=== PATIENT | male | born 1945 | race Caucasian/White ===

== ENCOUNTER → 2018-08-31 | Outpatient (REF) | payer MEDICARE ==
[2018-08-31 12:23] LABS: ALBUMIN 3.7 GM/DL (3.2-5.2); ALBUMIN/GLOBULIN RATIO 1.09 (1.00-1.93); ALKALINE PHOSPHATASE 160 U/L (45-117); ALT/SGPT 29 U/L (12-78); ANION GAP 11 MEQ/L (8-16); AST/SGOT 12 U/L (7-37); BILIRUBIN,TOTAL 0.5 MG/DL (0.2-1.0); BLOOD UREA NITROGEN 17 MG/DL (7-18); CALCIUM LEVEL 8.8 MG/DL (8.8-10.2); CARBON DIOXIDE LEVEL 27 MEQ/L (21-32); CHLORIDE LEVEL 105 MEQ/L (98-107); CHOLESTEROL LEVEL 107 MG/DL (<200); CHOLESTEROL RISK RATIO 2.547 (<5); CPK CREATINE PHOSPHOKINASE 45 U/L (39-308); CREATININE FOR GFR 1.16 MG/DL (0.70-1.30); GLOMERULAR FILTRATION RATE > 60.0 (>42); GLUCOSE, FASTING 131 MG/DL (70-100); HDL CHOLESTEROL 42 MG/DL (>40); LDL CHOLESTEROL 41 MG/DL (<100); NON-HDL-C 65 MG/DL; POTASSIUM SERUM 4.1 MEQ/L (3.5-5.1); SODIUM LEVEL 143 MEQ/L (136-145); TOTAL PROTEIN 7.1 GM/DL (6.4-8.2); TRIGLYCERIDES LEVEL 121 MG/DL (<150)
[2018-08-31 12:28] LABS: BASO % 0.5 % (0.0-1.0); EOS # 0.2 10^3/uL (0.0-0.50); EOS % 2.5 % (0.0-3.0); HEMATOCRIT 49.1 % (42.0-52.0); HEMOGLOBIN 16.4 g/dl (13.5-17.5); IMMATURE GRANULOCYTE % 0.2 % (0-3.0); LYMPH # 1.5 10^3/uL (1.5-4.5); LYMPH % 18.9 % (24.0-44.0); MEAN CORPUSCULAR HEMOGLOBIN 29.4 pg (27.0-33.0); MEAN CORPUSCULAR HGB CONC 33.4 g/dl (32.0-36.5); MEAN CORPUSCULAR VOLUME 88.2 fl (80.0-96.0); MONO # 0.5 10^3/uL (0.0-0.8); MONO % 6.4 % (0.0-5.0); NEUTROPHILS # 5.8 10^3/uL (1.8-7.7); NEUTROPHILS % 71.5 % (36.0-66.0); PLATELET COUNT, AUTOMATED 203 10^3/uL (150-450); RED BLOOD COUNT 5.57 10^6/uL (4.30-6.10); RED CELL DISTRIBUTION WIDTH 13.9 % (11.5-14.5); WHITE BLOOD COUNT 8.1 10^3/uL (4.0-10.0)
[2018-08-31 12:42] LABS: ESTIMATED AVERAGE GLUCOSE 237 MG/DL (60-110); HEMOGLOBIN A1c 9.9 %
== END ==
LOC: M SFHCPLAZ 09:27
DX: E78.2 Mixed hyperlipidemia (principal); I10 Essential (primary) hypertension; E11.22 Type 2 diabetes mellitus with diabetic chronic kidney disease
CPT/HCPCS: 82550

== ENCOUNTER → 2018-10-26 | Outpatient (REF) | payer MEDICARE ==
[2018-10-26 12:54] LABS: HEMOGLOBIN A1c 8.8 %
[2018-10-26 13:07] LABS: MALB URINE SIEMENS 70.4 MG/L; MAU/CREAT RATIO 58.6 MCG/MG (0.0-30.0)
== END ==
LOC: M SFHCPLAZ 09:06
PROVIDERS: ATTEND Physician Assistant Medical
DX: E11.22 Type 2 diabetes mellitus with diabetic chronic kidney disease (principal)

== ENCOUNTER 2018-10-28 12:07 | Emergency (ER) | payer MEDICARE ==
[~2018-10-28] VITALS: Ht 172.7 cm; Wt 111.4 kg
[2018-10-28] MEDS ORDERED: METO50TA7 PO (12:52)
[2018-10-28] MEDS ORDERED: ASPI325T25 PO (12:52)
[2018-10-28] MEDS ORDERED: ATOR40TA75 PO (12:52)
[2018-10-28] MEDS ORDERED: HYDR10TAB PO (12:52)
[2018-10-28] MEDS ORDERED: AMLO10TA5 PO (12:52)
--- NOTE | 2018-10-28 14:55 | REP ---
Left hip: Two views. History: Left hip pain. Question injury. Findings: AP and frog-leg views of the left hip show greater trochanteric spurring and mild hip joint osteoarthritic spurring. Vascular calcifications noted. No fractures seen Impression: Mild osteoarthritis and greater trochanteric spurring. No fracture seen. Vascular calcification. Electronically Signed by Mauro Coffey MD 10/28/2018 02:46 P
[2018-10-28] MEDS ORDERED: CYCL10TA PO (15:05)
[2018-10-28 15:12] VITALS: BP 138/70
== END 2018-10-28 15:14 | disposition home or self-care (01) ==
LOC: M ED 12:07
DX: M16.12 Unilateral primary osteoarthritis, left hip (principal); M62.830 Muscle spasm of back; M54.9 Dorsalgia, unspecified; G89.29 Other chronic pain; I10 Essential (primary) hypertension; Z87.442 Personal history of urinary calculi; Z95.5 Presence of coronary angioplasty implant and graft; Z79.899 Other long term (current) drug therapy; Z79.82 Long term (current) use of aspirin

== ENCOUNTER → 2019-01-24 | Outpatient (REF) | payer MEDICARE ==
[~2019-01-24] MED LIST: AMLO10TA5 PO; ASPI-255 PO; ATOR40TA75 PO; CYCL10TA PO; HYDR10TAB PO; METO50TA7 PO
[2019-01-24 14:03] LABS: BASO # 0.1 10^3/uL (0.0-0.2); BASO % 0.5 % (0.0-1.0); EOS # 0.2 10^3/uL (0.0-0.50); EOS % 1.5 % (0.0-3.0); HEMATOCRIT 48.7 % (42.0-52.0); HEMOGLOBIN 15.8 g/dl (13.5-17.5); LYMPH # 1.5 10^3/uL (1.5-4.5); LYMPH % 14.9 % (24.0-44.0); MEAN CORPUSCULAR HGB CONC 32.4 g/dl (32.0-36.5); MEAN CORPUSCULAR VOLUME 86.2 fl (80.0-96.0); MONO # 0.5 10^3/uL (0.0-0.8); MONO % 5.4 % (0.0-5.0); NEUTROPHILS # 7.7 10^3/uL (1.8-7.7); NEUTROPHILS % 77.2 % (36.0-66.0); PLATELET COUNT, AUTOMATED 237 10^3/uL (150-450); RED BLOOD COUNT 5.65 10^6/uL (4.30-6.10); WHITE BLOOD COUNT 9.9 10^3/uL (4.0-10.0)
[2019-01-24 14:19] LABS: ALBUMIN 4.1 GM/DL (3.2-5.2); ALT/SGPT 23 U/L (12-78); BILIRUBIN,TOTAL 0.5 MG/DL (0.2-1.0); BLOOD UREA NITROGEN 25 MG/DL (7-18); CALCIUM LEVEL 9.1 MG/DL (8.8-10.2); CARBON DIOXIDE LEVEL 29 MEQ/L (21-32); CHLORIDE LEVEL 103 MEQ/L (98-107); CREATININE FOR GFR 1.26 MG/DL (0.70-1.30); GLOMERULAR FILTRATION RATE > 60.0 (>42); GLUCOSE, FASTING 236 MG/DL (70-100); POTASSIUM SERUM 4.4 MEQ/L (3.5-5.1); SODIUM LEVEL 136 MEQ/L (136-145); TOTAL PROTEIN 7.6 GM/DL (6.4-8.2)
[2019-01-24 14:37] LABS: HEMOGLOBIN A1c 8.7 %
== END ==
LOC: M SFHCPLAZ 11:54
PROVIDERS: ATTEND Physician Assistant Medical
DX: E11.22 Type 2 diabetes mellitus with diabetic chronic kidney disease (principal); I10 Essential (primary) hypertension
CPT/HCPCS: 36415; 80053; 83036; 85025; G0463

== ENCOUNTER → 2019-03-08 | Outpatient (CLI) | payer MEDICARE ==
--- NOTE | 2019-03-08 10:17 | REP ---
Chest two views HISTORY: Shortness of breath Comparison: None A 2.4 cm parenchymal density is present in the right lower lobe. This is suspicious for a neoplasm. Patchy density is present in the right mid and lower lobe consistent with atelectasis or infiltrate. Linear densities are present in the left lower lobe consistent with atelectasis or scar. The cardiac silhouette is enlarged. The pulmonary vasculature is normal in appearance. The bony structure is intact. IMPRESSION: 1. There is 8-0.4 cm parenchymal density in the right lower lobe suspicious for a neoplasm. CT of the chest is recommended for further evaluation. 2. Right mid and lower lobe atelectasis or infiltrate. 3. Left lower lobe atelectasis or scar. Electronically Signed by Wesley Ponce MD 03/08/2019 10:08 A
== END ==
LOC: M SMT 09:40
PROVIDERS: ATTEND Physician Assistant Medical
DX: R91.8 Other nonspecific abnormal finding of lung field (principal); R06.02 Shortness of breath
CPT/HCPCS: 71046; G0463

== ENCOUNTER → 2019-03-15 | Outpatient (CLI) | payer MEDICARE ==
[~2019-03-15] MED LIST changes: +ISOVUE-370 76% 100ML VIAL (Q9967) As Ordered ONE
--- NOTE | 2019-03-15 19:36 | REP ---
CT CHEST WITHOUT IV CONTRAST: TECHNIQUE: Axial contrast enhanced images from the thoracic inlet to the upper abdomen using 100 mL Isovue 370 intravenous contrast material with multiplanar reformations. Comparison made with prior chest radiographs 03/08/2019. In the right upper lobe posterior and inferiorly there is a cluster of large nodules. The largest is pleural based and measures approximately 4.7 x 3.1 cm. Two adjacent nodules measures 1.7 and 1.0 cm in diameter. Just above that there is a subcentimeter nodule, a 2.2 cm nodule a 1.1 cm nodule. Otherwise there are a few scattered tiny calcified granulomas bilaterally as well as mild scattered interstitial fibrotic changes mainly in the lung bases. Heart is mildly enlarged. No mediastinal, hilar, or chest wall lymphadenopathy is seen. There are scattered small mediastinal and hilar calcified lymph nodes. There is no pleural or pericardial effusion. There is atherosclerotic calcification of the thoracic aorta without aneurysm. There appears to be a small cyst in the right and in the left lobes of the liver. There are degenerative changes of the spine. The study is somewhat limited due to breathing motion. IMPRESSION: There are multiple nodules clustered together in the posterior right upper lobe inferior aspect. Differential diagnosis would include neoplastic and infectious etiologies. Close followup is recommended. CT guided biopsy could be performed if desired. There is no evidence of significant adenopathy. There is evidence of prior granulomatous disease. Electronically Signed by Adrian Eng MD 03/16/2019 09:02 A
== END ==
LOC: M RAD 14:47
PROVIDERS: ATTEND Physician Assistant Medical
DX: R91.8 Other nonspecific abnormal finding of lung field (principal)
CPT/HCPCS: 71260; Q9967

== ENCOUNTER → 2019-03-23 | Outpatient (REF) | payer MEDICARE ==
[~2019-03-23] MED LIST changes: -ISOVUE-370 76% 100ML VIAL (Q9967) As Ordered ONE
[2019-03-23 17:36] LABS: ALBUMIN 3.9 GM/DL (3.2-5.2); BILIRUBIN,TOTAL 0.4 MG/DL (0.2-1.0); CALCIUM LEVEL 8.6 MG/DL (8.8-10.2); CREATININE FOR GFR 1.3 MG/DL (0.70-1.30); GLOMERULAR FILTRATION RATE 57.9 (>42); POTASSIUM SERUM 4.2 MEQ/L (3.5-5.1); TOTAL PROTEIN 7.5 GM/DL (6.4-8.2)
== END ==
LOC: M SFHCPLAZ 15:16
PROVIDERS: ATTEND Physician Assistant Medical
DX: J18.1 Lobar pneumonia, unspecified organism (principal); E11.22 Type 2 diabetes mellitus with diabetic chronic kidney disease
CPT/HCPCS: 36415; 80053; 86480; G0463

== ENCOUNTER → 2019-03-29 | Outpatient (REF) | payer MEDICARE | LOC: M SFHCPLAZ 15:16 | PROVIDERS: ATTEND Physician Assistant Medical | DX: J18.1 Lobar pneumonia, unspecified organism (principal) ==

== ENCOUNTER → 2019-04-17 | Outpatient (CLI) | payer MEDICARE ==
[~2019-04-17] MED LIST changes: +ISOVUE-370 76% 100ML VIAL (Q9967) As Ordered ONE
--- NOTE | 2019-04-17 15:13 | REP ---
CT of the chest with IV contrast: Comparison is 03/15/2019. There is a large mass in the right upper lobe versus right upper lobe collapse versus combination. The previous right upper lobe nodular densities are no longer identified on the current study and may be incorporated into the large right upper lobe mass like density present today. There is no right pleural effusion. The right middle lobe and right lower lobe are unremarkable. The left lung is unremarkable except for mild atelectasis. There is no mediastinal lymph node enlargement. There is no axillary lymph node enlargement. There is no hilar lymph node enlargement. Thoracic aorta is unremarkable. Cardiac size is enlarged. This is unchanged. There is no pericardial effusion. Upper abdomen: The adrenals are imaged incompletely. No adrenal masses are identified in the visualized portions of the adrenals. The visualized upper abdominal contents are otherwise unremarkable. Impression: Large right upper lobe mass versus right upper lobe collapse versus combination as a change from the prior study. The previous right upper lobe nodules are not identified and may be incorporated into the mass like density identified today. Cardiomegaly, unchanged. No adenopathy or pleural effusion. Electronically Signed by Adrian May MD 04/17/2019 03:05 P
== END ==
LOC: M RAD 13:32
PROVIDERS: ATTEND Physician Assistant Medical
DX: R91.8 Other nonspecific abnormal finding of lung field (principal); I51.7 Cardiomegaly
CPT/HCPCS: 71260; Q9967

== ENCOUNTER → 2019-05-03 | Outpatient (CLI) | payer MEDICARE ==
[~2019-05-03] MED LIST changes: -ISOVUE-370 76% 100ML VIAL (Q9967) As Ordered ONE
--- NOTE | 2019-05-03 17:28 | REP ---
Bilateral lower extremity Duplex Doppler venous ultrasound: Real time compression and duplex Doppler interrogation of the bilateral lower extremity deep venous system is performed. Bilaterally, the common femoral, superficial femoral and popliteal veins are fully compressible with transducer pressure and demonstrate normal spontaneous and phasic flow, without evidence of deep venous thrombosis. Impression: No evidence of deep venous thrombosis of the bilateral lower extremity femoral popliteal venous system. Electronically Signed by Adrian Eng MD 05/03/2019 05:21 P
== END ==
LOC: M RAD 15:36
PROVIDERS: ATTEND Internal Medicine Pulmonary Disease
DX: R60.0 Localized edema (principal)

== ENCOUNTER → 2019-05-05 | Outpatient (REF) | payer MEDICARE ==
[2019-05-05 17:48] LABS: BASO # 0.1 10^3/uL (0.0-0.2); BASO % 0.5 % (0.0-1.0); EOS # 0.1 10^3/uL (0.0-0.50); EOS % 0.9 % (0.0-3.0); HEMATOCRIT 49.3 % (42.0-52.0); HEMOGLOBIN 16.2 g/dl (13.5-17.5); LYMPH # 1.5 10^3/uL (1.5-4.5); LYMPH % 15.3 % (24.0-44.0); MEAN CORPUSCULAR HEMOGLOBIN 28.4 pg (27.0-33.0); MEAN CORPUSCULAR HGB CONC 32.9 g/dl (32.0-36.5); MEAN CORPUSCULAR VOLUME 86.3 fl (80.0-96.0); MONO # 0.5 10^3/uL (0.0-0.8); MONO % 5.7 % (0.0-5.0); NEUTROPHILS # 7.4 10^3/uL (1.8-7.7); NEUTROPHILS % 77.1 % (36.0-66.0); PLATELET COUNT, AUTOMATED 228 10^3/uL (150-450); RED BLOOD COUNT 5.71 10^6/uL (4.30-6.10); WHITE BLOOD COUNT 9.5 10^3/uL (4.0-10.0)
[2019-05-05 17:57] LABS: INR 1.05; PROTHROMBIN TIME 13.4 SECONDS (11.8-14.0)
[2019-05-05 17:58] LABS: PARTIAL THROMBOPLASTIN TIME 35.2 SECONDS (25.0-38.4)
[2019-05-05 18:09] LABS: ALBUMIN 3.7 GM/DL (3.2-5.2); ALT/SGPT 26 U/L (12-78); BILIRUBIN,TOTAL 0.4 MG/DL (0.2-1.0); BLOOD UREA NITROGEN 13 MG/DL (7-18); CALCIUM LEVEL 9.1 MG/DL (8.8-10.2); CARBON DIOXIDE LEVEL 29 MEQ/L (21-32); CHLORIDE LEVEL 103 MEQ/L (98-107); CREATININE FOR GFR 1.19 MG/DL (0.70-1.30); GLOMERULAR FILTRATION RATE > 60.0 (>42); GLUCOSE, FASTING 178 MG/DL (70-100); POTASSIUM SERUM 4.1 MEQ/L (3.5-5.1); SODIUM LEVEL 139 MEQ/L (136-145); TOTAL PROTEIN 7.2 GM/DL (6.4-8.2)
== END ==
LOC: M SFHCPLAZ 15:32
PROVIDERS: ATTEND Physician Assistant Medical
DX: Z01.818 Encounter for other preprocedural examination (principal); J44.9 Chronic obstructive pulmonary disease, unspecified
CPT/HCPCS: 36415; 80053; 85025; 85610; 85730; G0463

== ENCOUNTER 2019-06-03 10:07 | Emergency (ER) | payer MEDICARE ==
[~2019-06-03] VITALS: Ht 172.7 cm; Wt 110.6 kg
[2019-06-03] MEDS ORDERED: FLUT44IN (10:15)
[2019-06-03] MEDS ORDERED: INCR1INH (10:15)
[2019-06-03] MEDS ORDERED: TRES1INJ (10:15)
[2019-06-03 11:03] LABS: BASO # 0.1 10^3/uL (0.0-0.2); BASO % 0.6 % (0.0-1.0); EOS # 0.2 10^3/uL (0.0-0.5); EOS % 2.4 % (0.0-3.0); HEMATOCRIT 49.3 % (42.0-52.0); HEMOGLOBIN 16.1 g/dl (13.5-17.5); LYMPH # 1.3 10^3/uL (1.5-5.0); LYMPH % 16.9 % (24.0-44.0); MEAN CORPUSCULAR HGB CONC 32.7 g/dl (32.0-36.5); MEAN CORPUSCULAR VOLUME 85.6 fl (80.0-96.0); MONO # 0.5 10^3/uL (0.0-0.8); NEUTROPHILS # 5.7 10^3/uL (1.5-8.5); NEUTROPHILS % 73.8 % (36.0-66.0); PLATELET COUNT, AUTOMATED 215 10^3/uL (150-450); RED BLOOD COUNT 5.76 10^6/uL (4.30-6.10); WHITE BLOOD COUNT 7.8 10^3/uL (4.0-10.0)
[2019-06-03 11:23] LABS: INR 1.05; PROTHROMBIN TIME 13.4 SECONDS (11.8-14.0)
[2019-06-03 11:24] LABS: PARTIAL THROMBOPLASTIN TIME 31.7 SECONDS (25.0-38.4)
[2019-06-03] MEDS ORDERED: ISOVUE-370 76% 100ML VIAL (Q9967) As Ordered ONE (11:35)
[2019-06-03 11:43] LABS: ALBUMIN 3.6 GM/DL (3.2-5.2); ALT/SGPT 24 U/L (12-78); BILIRUBIN,TOTAL 0.4 MG/DL (0.2-1.0); BLOOD UREA NITROGEN 16 MG/DL (7-18); CALCIUM LEVEL 9.5 MG/DL (8.8-10.2); CARBON DIOXIDE LEVEL 25 MEQ/L (21-32); CHLORIDE LEVEL 103 MEQ/L (98-107); CREATININE FOR GFR 1.17 MG/DL (0.70-1.30); GLOMERULAR FILTRATION RATE > 60.0 (>42); GLUCOSE, FASTING 256 MG/DL (70-100); POTASSIUM SERUM 4.5 MEQ/L (3.5-5.1); SODIUM LEVEL 137 MEQ/L (136-145); TOTAL PROTEIN 7.3 GM/DL (6.4-8.2)
--- NOTE | 2019-06-03 11:54 | REP ---
Clinical: Neck pain and decreased range of motion. Technique: AP, lateral, open mouth views of the cervical spine. Findings: Alignment and lordosis maintained. No acute fracture / compression injury or subluxation. Early advanced multilevel degenerative changes with endplate sclerosis, osteophytosis and disc space narrowing noted at C5-6 through C7-T1. Impression: Moderate/advanced multilevel degenerative spondylosis. Electronically Signed by Scott Montanez MD 06/03/2019 11:45 A
[2019-06-03] MEDS ORDERED: ACETAMINOPHEN 325 MG TAB PO ONE (12:00)
--- NOTE | 2019-06-03 12:11 | REP ---
Clinical: Right upper chest pain. Technique: Axial contrast enhanced images from the thoracic inlet to the upper abdomen with coronal and sagittal re-formations using 100 ml Isovue 370 intravenous contrast material. Findings: Examination is severely limited due to considerable respiratory motion artifact. Appears to be stable suspected collapse of the to the right upper lobe and underlying mass lesion or further pathology cannot definitively be excluded. Small subpleural nodular densities along the right mid lung zone (images 26, 32) measure approximately 16 mm and appears to be slightly increased when compared to prior examination. Minimal bibasilar atelectasis. No obvious effusion. Adenopathy cannot be excluded. Atherosclerotic changes to the thoracic aorta and coronary arteries noted without aortic aneurysm or dissection. No cardiomegaly or pericardial effusion. Osseous structures are grossly intact. Very limited evaluation of the visualized upper abdomen demonstrates hepatic hypodensities which are nonspecific as well as an ill-defined complex low density area within the visualized right kidney and possible enhancing mass posterior to the left kidney. Impression: 1. Significantly limited examination due to motion artifact. 2. Right upper lobe collapse and/or underlying mass lesion is essentially unchanged. However, to subpleural right-sided nodules measuring up to approximately 16 mm are increased from prior examination. Findings cannot exclude metastatic disease. 3. Incomplete evaluation of the upper abdomen concerning for possible right renal mass and posterior left upper abdominal mass. Electronically Signed by Scott Montanez MD 06/03/2019 12:02 P
[2019-06-03 12:50] VITALS: BP 142/67
[2019-06-03] MEDS ORDERED: KETOROLAC 30 MG/ML VIAL (J1885) IV ONE (13:00)
--- NOTE | 2019-06-04 12:49 | ED PDOC ---
Post-Departure Follow-Up neal monzon faxed formal report of ct chest for fu rodolfog Rajni Fagan MD Jun 04, 2019 12:49
[2019-08-04] MEDS ORDERED: TRAZ-252 PO (13:01)
[2019-08-04] MEDS ORDERED: CYCL10TA PO (13:01)
[2019-08-07] MEDS ORDERED: AFIN10TA PO (10:36)
[2019-09-06] MEDS ORDERED: SUMA6KIT SC (12:08)
[2019-09-08] MEDS ORDERED: IBUP-1022 PO (10:51)
[2019-09-08] MEDS ORDERED: HYDR-3713 PO (10:51)
[2019-09-08] MEDS ORDERED: AMOX500C PO (10:51)
[2019-09-08] MEDS ORDERED: HUMA100I5 SQ (11:46)
== END 2019-06-03 13:17 | disposition home or self-care (01) ==
LOC: M ED 10:07
DX: S46.811A Strain of other muscles, fascia and tendons at shoulder and upper arm level, right arm, initial encounter (principal); X50.0XXA Overexertion from strenuous movement or load, initial encounter; Y92.009 Unspecified place in unspecified non-institutional (private) residence as the place of occurrence of the external cause; Y93.F9 Activity, other caregiving; Y99.8 Other external cause status; M47.812 Spondylosis without myelopathy or radiculopathy, cervical region; R91.8 Other nonspecific abnormal finding of lung field; E11.9 Type 2 diabetes mellitus without complications; I10 Essential (primary) hypertension; E78.5 Hyperlipidemia, unspecified; Z86.79 Personal history of other diseases of the circulatory system; Z87.442 Personal history of urinary calculi; Z95.5 Presence of coronary angioplasty implant and graft; Z79.82 Long term (current) use of aspirin; Z79.899 Other long term (current) drug therapy
CPT/HCPCS: 36415; 71260; 72040; 80047; 80053; 85025; 85610; 85730; 96374; 99284; J1885; Q9967

== ENCOUNTER → 2019-06-07 | Outpatient (REF) | payer MEDICARE ==
[~2019-06-07] MED LIST changes: +FLUT44IN; +INCR1INH; +TRES1INJ
[2019-06-07 10:59] LABS: BASO % 0.4 % (0.0-1.0); EOS # 0.2 10^3/uL (0.0-0.5); EOS % 2.7 % (0.0-3.0); HEMATOCRIT 49.3 % (42.0-52.0); HEMOGLOBIN 16.2 g/dl (13.5-17.5); LYMPH # 1.2 10^3/uL (1.5-5.0); LYMPH % 17.6 % (24.0-44.0); MEAN CORPUSCULAR HEMOGLOBIN 28.3 pg (27.0-33.0); MEAN CORPUSCULAR HGB CONC 32.9 g/dl (32.0-36.5); MONO # 0.4 10^3/uL (0.0-0.8); MONO % 5.7 % (0.0-5.0); NEUTROPHILS # 5.2 10^3/uL (1.5-8.5); NEUTROPHILS % 73.3 % (36.0-66.0); PLATELET COUNT, AUTOMATED 235 10^3/uL (150-450); RED BLOOD COUNT 5.73 10^6/uL (4.30-6.10); WHITE BLOOD COUNT 7.1 10^3/uL (4.0-10.0)
[2019-06-07 11:13] LABS: INR 1.1; PROTHROMBIN TIME 13.9 SECONDS (11.8-14.0)
[2019-06-07 11:14] LABS: ALBUMIN 3.7 GM/DL (3.2-5.2); ALT/SGPT 28 U/L (12-78); BILIRUBIN,TOTAL 0.4 MG/DL (0.2-1.0); BLOOD UREA NITROGEN 15 MG/DL (7-18); CALCIUM LEVEL 9.7 MG/DL (8.8-10.2); CARBON DIOXIDE LEVEL 29 MEQ/L (21-32); CHLORIDE LEVEL 102 MEQ/L (98-107); CREATININE FOR GFR 1.16 MG/DL (0.70-1.30); GLOMERULAR FILTRATION RATE > 60.0 (>42); GLUCOSE, FASTING 133 MG/DL (70-100); PARTIAL THROMBOPLASTIN TIME 33.6 SECONDS (25.0-38.4); POTASSIUM SERUM 4.4 MEQ/L (3.5-5.1); SODIUM LEVEL 140 MEQ/L (136-145); TOTAL PROTEIN 7.1 GM/DL (6.4-8.2)
== END ==
LOC: M SFHCPLAZ 09:34
PROVIDERS: ATTEND Physician Assistant Medical
DX: Z01.818 Encounter for other preprocedural examination (principal); Z79.01 Long term (current) use of anticoagulants

== ENCOUNTER → 2019-06-12 | Outpatient (CLI) | payer MEDICARE ==
[2019-06-17 00:06] LABS: ANCA-ATYPICAL <1:20 titer (Neg:<1:20); ASPERGILLUS FLAVUS ABY Negative (Neg:<1:1); ASPERGILLUS FUMIGATUS ABY Negative (Neg:<1:1); ASPERGILLUS NIGER ABY Negative (Neg:<1:1); BLASTOMYCES ANTIBODY LEVEL Negative (Neg:<1:1); CRYPTOCOCCUS ANTIGEN SER Negative (Negative); CYTOPLASMIC NEUTROP AB ANCA-C <1:20 titer (Neg:<1:20); HISTOPLASMOSIS ANTIBODY Negative (Neg:<1:1); PERINUCLEAR AB ANCA-P <1:20 titer (Neg:<1:20); PSA TOTAL 1.6 ng/mL (0.0-4.0)
== END ==
LOC: M LAB 14:54
PROVIDERS: ATTEND Internal Medicine Pulmonary Disease
DX: J44.9 Chronic obstructive pulmonary disease, unspecified (principal); R91.8 Other nonspecific abnormal finding of lung field

== ENCOUNTER → 2019-06-27 | Outpatient (CLI) | payer MEDICARE ==
[~2019-06-27] MED LIST changes: +ISOVUE-370 76% 100ML VIAL (Q9967) As Ordered ONE
--- NOTE | 2019-06-27 15:22 | REP ---
CT of the abdomen pelvis without and with IV contrast, without bowel contrast for evaluation of possible right renal mass and possible left upper abdominal mass identified on recent chest CT dated 06/03/2019. After IV contrast multiphasic imaging is performed initially during the arterial phase flow by scanning during the portal venous phase by scanning during the delayed phase of contrast enhancement. Within the visualized lung saenz. There are pleural-based lung nodules on the right, similar to the comparison chest CT. The hepatic parenchyma is homogeneous. The gallbladder, pancreas and spleen are unremarkable. There is a right renal mid pole mass measuring 6.2 cm AP by 5.8 cm transversely by 6.4 cm craniocaudad. The mass demonstrates mottled enhancement. No filling defect in the right renal vein is identified by CT. There is a 13 ml right renal cortical cyst in the anterior cortex at the inferior margin of the renal mass. The left kidney is unremarkable. There is a retroperitoneal mass on the right measuring 3.0 cm posteriorly in the right pararenal fat on image 44. There is a retroperitoneal mass on the left posteriorly in the left pararenal fat measuring 3.2 cm on image 25. There is a second retroperitoneal mass on the left posteriorly in the left pararenal fat measuring 2.2 cm on image 52. The bowel is unremarkable. No mesenteric adenopathy is identified. There is no ascites. There are two small hypodensities in the left lobe of the liver, one measuring 11 mm, 9 mm, too small for further characterization at this time. Pelvis: The bladder is unremarkable. There is no pelvic adenopathy or ascites. The pelvic bowel loops are unremarkable except for occasional diverticula in the sigmoid colon without CT evidence of diverticulitis. Impression: The right renal mass as described. Right retroperitoneal mass within the right pararenal fat. The two left retroperitoneal masses within the left pararenal fat. Right lung pleural based nodules. There is no retroperitoneal or mesenteric adenopathy. No ascites. There are a few small hypodensities in the left lobe of the liver, too small for further characterization at this time. There are no lytic, blastic or destructive skeletal changes. Electronically Signed by Adrian May MD 06/27/2019 03:14 P
== END ==
LOC: M RAD 13:29
PROVIDERS: ATTEND Family Medicine
DX: N28.89 Other specified disorders of kidney and ureter (principal); N28.1 Cyst of kidney, acquired; K57.30 Diverticulosis of large intestine without perforation or abscess without bleeding
CPT/HCPCS: 74178; Q9967

== ENCOUNTER → 2019-06-30 | Outpatient (REF) | payer MEDICARE ==
[~2019-06-30] MED LIST changes: -ISOVUE-370 76% 100ML VIAL (Q9967) As Ordered ONE
== END ==
LOC: M SFHCPLAZ 10:22
PROVIDERS: ATTEND Physician Assistant Medical
DX: N28.89 Other specified disorders of kidney and ureter (principal)

== ENCOUNTER → 2019-07-11 | Outpatient (CLI) | payer MEDICARE ==
[~2019-07-11] MED LIST changes: +LIDOCAINE 1% MDV 20ML VIAL As Ordered ONE
[2019-07-11 10:09] VITALS: BP 146/72
--- NOTE | 2019-07-11 19:02 | REP ---
CT-guided retroperitoneal biopsy The procedure is performed by ESTELLA Lake, under the direct supervision of Dr. Coffey. The patient has a history of a retroperitoneal mass measuring 3 cm posteriorly to the right pararenal fat on a CT scan dated 06/27/2019. The risks and benefits of the procedure were explained to the patient and informed consent was obtained both orally and written. Directly prior to the start of the procedure, a formal timeout was done in the exam room. The right retroperitoneal mass was localized using CT guidance. Skin was prepped and draped in the usual sterile fashion. 3 ml of 1% lidocaine was used as a local anesthetic. Using CT guidance a 19/20 gauge coaxial needle biopsy system was inserted and advanced into the mass. 4 core biopsy samples were obtained and sent to the lab. CT images obtained directly after the biopsy show no post procedural abnormalities. After the appropriate amount of monitored convalescence the patient was discharged from the department. Reviewed by ESTELLA Mckinney 07/11/2019 01:14 P Electronically Signed by Mauro Coffey MD 07/11/2019 06:52 P
== END ==
LOC: M IRPRO 08:10
PROVIDERS: ATTEND Physician Assistant Medical
DX: C64.1 Malignant neoplasm of right kidney, except renal pelvis (principal)

== ENCOUNTER → 2019-08-15 | Outpatient (CLI) | payer MEDICARE ==
[~2019-08-15] MED LIST changes: +AFIN10TA PO; -LIDOCAINE 1% MDV 20ML VIAL As Ordered ONE; +PROHANCE 279.3MG/ML 15ML VIAL (A9576) As Ordered ONE; +PROHANCE 279.3MG/ML 5ML VIAL (A9576) As Ordered ONE; +TRAZ-252 PO
--- NOTE | 2019-08-16 08:38 | REP ---
MRI brain: 08/15/2019. Indication: Headache. Renal cell carcinoma. Metastatic workup. Comparison: None. Technique: Multiplanar short and long TR sequences of the brain were obtained including post-gadolinium images. 20 ml IV ProHance were administered. Findings: There are no areas of restricted diffusion or pathologic gadolinium enhancement. Incidental note is made of a small developmental venous anomaly of the left cerebellum. There is no intracranial mass effect or hydrocephalous. Mild diffuse volume loss is present. The large intracranial flow voids are unremarkable. There are a few small foci of elevated CT signal scattered throughout the cerebral hemisphere white matter most consistent with sequelae of chronic small vessel disease. The midline structures, and craniocervical junction are unremarkable. There is no evidence of intracranial hemorrhage. Impression: No acute intracranial process or evidence of intracranial metastatic disease. Volume loss and mild sequelae of chronic microangiopathic ischemic disease. Electronically Signed by Osmin Aj DO 08/16/2019 08:30 A
== END ==
LOC: M RAD 16:39
PROVIDERS: ATTEND Internal Medicine Hematology
DX: C64.9 Malignant neoplasm of unspecified kidney, except renal pelvis (principal)
CPT/HCPCS: 70553; A9576

== ENCOUNTER → 2019-09-21 | Outpatient (CLI) | payer MEDICARE ==
[~2019-09-21] MED LIST changes: +AMOX500C PO; +HUMA100I5 SQ; +HYDR-3713 PO; +IBUP-1022 PO; +LIDOCAINE W/EPINEPHRINE 1% 20ML VIAL As Ordered ONE; +MIDAZOLAM INJ 2 MG/2 ML VIAL (J2250) As Ordered ONE; -PROHANCE 279.3MG/ML 15ML VIAL (A9576) As Ordered ONE; -PROHANCE 279.3MG/ML 5ML VIAL (A9576) As Ordered ONE; +SUMA6KIT SC; +ceFAZolin 1GM INJ (J0690 PER 500MG) As Ordered ONE; +fentaNYL 100 MCG/2 ML INJECTION (J3010) As Ordered ONE
--- NOTE | 2019-09-21 11:24 | ROOPDOC ---
[facility] Report Of Operation Report of Operation DATE OF PROCEDURE: 09/21/19 PREPROCEDURE DIAGNOSES: Renal cell carcinoma POSTPROCEDURE DIAGNOSES: Same. PROCEDURE: 1. Ultrasound-guided access left internal jugular vein 2. Placement of a left IJ tunneled port SURGEON: Wan Mayfield MD ANESTHESIA: Local anesthesia 20 mL lidocaine with epi. Monitored intravenous conscious sedation with supervised by Dr. Mayfield. The patient was independently monitored by a registered nurse assigned to the Department of radiology using automated blood pressure, EKG, and pulse oximetry. The detailed sedation record is permanently stored in the hospital information system. The following is the brief sedation record: INDICATION FOR OPERATION: Mr. Swift is a very pleasant 74-year-old gentleman with renal cell carcinoma requires port placement for frequent lab draws, IV fluid and medication administration and chemotherapy. Risks benefits and alternatives were explained to the patient and he was agreeable to proceed. Informed consent was obtained. INTERPRETATION: The port is in good position on the left chest with the catheter tunneled to the left internal jugular and the tip freely mobile and the right atrium. There are no kinks in the catheter. There is no pneumothorax. It is okay to use the port. REPORT OF OPERATION: The patient was brought to the angiographic suite in stable condition and placed supine on the fluoroscopic table with a shoulder roll to help with positioning. Ultrasound was used to examine the right internal jugular vein which was extremely small and possibly occluded proximally. The left internal jugular vein was large and easily compressible and suitable for port placement. The left neck and chest were prepped and draped in a sterile fashion. A timeout was performed. Local anesthesia was administered to the skin and subcutaneous tissue over the left chest up over the clavicle to the left jugular access site. A microneedle was used to access left jugular vein under ultrasound guidance. A wire was passed through this access into the central system under fluoroscopic guidance. A micro-sheath was placed and a J-wire was advanced into the central system through the micro-sheath under fluoroscopic guidance. A small incision was made on the left chest and blunt dissection was used to develop a pocket distal to this for the port. We then tunneled the port catheter from the left chest to the jugular access site. The port was placed into the port pocket after irrigating with saline. A peel-away sheath was then advanced over the wire under fluoroscopic guidance and the wire was removed. The port catheter was ad vanced through the peel-away sheath into the central system after cutting to the appropriate length. The peel-away sheath was removed. The tip was freely mobile and the right atrium. We access the port and easily xavier back and flushed and was heparin locked. It was not left accessed as the patient does not require chemotherapy today. We then irrigated the pocket and the jugular access site with normal saline a second time and the jugular site was closed with deep and superficial interrupted Monocryl sutures and Dermabond was placed over the skin. The pocket was closed with 2 layers of running 4-0 Vicryl suture and the skin was closed with running subcuticular Monocryl suture. The wound was cleaned and dried. Mastisol and Steri-Strips replace the length of the incision leaving room for the port to be accessed while the incision is healing and Steri-Strips remain in place. Dry gauze and a Tegaderm were placed and the patient was then taken to recovery in stable condition. He tolerated this sedation and the proc edure well. There were no complications. ESTIMATED BLOOD LOSS: Approximately 8 mL. COMPLICATIONS: None. PLAN: It is okay to use the Port-A-Cath for chemotherapy, blood draws, fluid and medication infusions. WAN MAYFIELD MD Sep 21, 2019 11:24
[2019-09-21 13:57] VITALS: BP 142/80
== END ==
LOC: M IRPRO 09:42
PROVIDERS: ATTEND Internal Medicine Hematology
DX: C64.1 Malignant neoplasm of right kidney, except renal pelvis (principal); I10 Essential (primary) hypertension
CPT/HCPCS: 36561; 99152; 99153; C1788; C1894; J0690; J2250; J3010

== ENCOUNTER → 2019-09-25 | Outpatient (CLI) | payer MEDICARE ==
[~2019-09-25] MED LIST changes: +ISOVUE-370 76% 100ML VIAL (Q9967) As Ordered ONE; -LIDOCAINE W/EPINEPHRINE 1% 20ML VIAL As Ordered ONE; -MIDAZOLAM INJ 2 MG/2 ML VIAL (J2250) As Ordered ONE; -ceFAZolin 1GM INJ (J0690 PER 500MG) As Ordered ONE; -fentaNYL 100 MCG/2 ML INJECTION (J3010) As Ordered ONE
--- NOTE | 2019-09-25 16:32 | REP ---
Clinical: History of renal carcinoma. Technique: Axial noncontrast images from the thoracic inlet to the upper abdomen with coronal and sagittal re-formations. Comparison: 06/03/2019, 04/17/2019 Findings: There is essentially complete opacification of the right upper lobe which is similar to prior examinations and may reflect a combination of mass, collapsed, and fluid. Subpleural nodules are identified along the periphery of the right middle lobe which have increased from prior examination and now measure up to 2.5 x 1.0 cm. Basilar atelectasis and possible early forming lingular and left lower lobe infiltrate cannot be excluded. Atherosclerotic disease to the thoracic aorta and coronary arteries noted without aortic aneurysm. Cardiomegaly is appreciated without pericardial effusion. Pacemaker noted. Limited upper abdomen again demonstrates a suspected mass involving the visualized right kidney as well as metastatic lesion posterior to the left kidney now measuring 3.7 cm diameter. Impression: 1. Essentially complete opacification of the right upper lobe similar to prior examination. Subpleural nodules along the right middle lobe minimally increased in size. 2. Trace basilar atelectasis and possible early left lower lobe infiltrate. 3. Highly suspicious right renal mass and 3.6 cm metastatic mass posterior to the left kidney. Electronically Signed by Scott Montanez MD 09/25/2019 04:23 P
--- NOTE | 2019-09-27 13:09 | REP ---
MRI pelvis without contrast: History: Restaging renal carcinoma. History of diabetic renal disease. Comparison CT abdomen and pelvis June 27, 2019. Technique: Axial, coronal, and sagittal imaging planes were utilized. T1 and T2-weighted scans were included with and without fat saturation in the usual fashion. MRI findings: Cortical and medullary bone signal intensity are normal in the bony pelvic ring and sacrum and proximal femurs. There is no evidence of skeletal metastatic disease. No pelvic mass or adenopathy is seen. Somewhat nodular enlargement of the prostate is seen consistent with BPH. Urinary bladder shows some trabeculation of its griffith but there is no evidence of diverticulum or mass lesion. No pelvic adenopathy is appreciated. Normal fat replaced inguinal lymph nodes are present bilaterally. Visualized bowel loops are unremarkable. The retroperitoneal metastatic nodules seen on CT study are above the top of the field of view of the pelvic MRI study. Impression: No evidence of metastatic disease in the pelvis. There are findings consistent with benign prostatic hypertrophy. Electronically Signed by Mauro Coffey MD 09/27/2019 06:24 P
--- NOTE | 2019-09-27 13:25 | REP ---
MRI abdomen without contrast: History: Staging renal cell carcinoma. Comparison CT study abdomen and pelvis June 27, 2019. Technique: Axial and coronal T1 and T2-weighted scans include spin-echo, fast spin echo, in and [id number], diffusion, weighted images. MRI findings: There is a heterogeneous mass in the upper pole of the right kidney which is predominately solid but containing cystic components. This measures 7.4 x 6.7 x 6.4 cm in overall dimension as seen on CT. There is a smaller simple cortical cyst in the anterior cortex of the right mid kidney. There are presumed metastatic foci of tumor deposit in the posterior pararenal fat bilaterally. These include a deposit on the right which measures 3.5 cm in greatest diameter on axial images, 3.1 cm in greatest diameter on June 27, 2019 CT study. There is a right sided lymph node adjacent to vena cava at the level of the renal hilus which appears larger as well, 1.5 cm today versus 0.8 cm previously. There is a deposit in the posterior pararenal fat on the left which measures 3.3 cm in greatest transverse dimension today, previously 3.2 cm. An additional posterior pararenal fat deposit is seen on the left measuring 2.0 cm today. This is more caudally positioned. It measured 2.2 cm previously. No other retroperitoneal adenopathy is seen. No adrenal lesion is observed. There is a heterogeneously enhancing soft tissue mass in the right chest wall just anterior to the anterior insertion of the diaphragm. This measures 5.2 x 6.0 x 2.7 cm. Its greatest transverse dimension previously was 4.9 cm, now 6.0 cm. There are small cysts visible in the liver. No definite liver lesion is seen. There is slight restricted diffusion in these metastatic foci. There is a subtle pattern of nodular restricted diffusion in the posterior lung gutters raising question of early pleural metastatic disease. Impression: Findings consistent with metastatic renal cell carcinoma right kidney with retroperitoneal, right pararenal daja, and right chest wall and possibly pleural metastatic foci. Some of the metastatic sites are a little larger. Electronically Signed by Mauro Coffey MD 09/27/2019 06:25 P
== END ==
LOC: M RAD 15:43
PROVIDERS: ATTEND Internal Medicine Hematology
DX: C64.9 Malignant neoplasm of unspecified kidney, except renal pelvis (principal); R91.1 Solitary pulmonary nodule; J98.11 Atelectasis
CPT/HCPCS: 71250; 72195; 74181; Q9967

== ENCOUNTER → 2019-11-03 09:30 | Outpatient (RCR) | payer MEDICARE, MEDICAID ==
[2019-08-04 12:56] VITALS: BP 132/68
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
[2019-08-07 10:30] VITALS: BP 138/68
[2019-08-07 10:53] LABS: APPEARANCE, URINE CLEAR (CLEAR); BACTERIA, URINE AUTO NEGATIVE (NEGATIVE); BILIRUBIN, URINE AUTO NEGATIVE (NEGATIVE); BLOOD, URINE BLOOD NEGATIVE (NEGATIVE); COLOR, URINE YELLOW (YELLOW); GLUCOSE, URINE (UA) AUTO 3+ mg/dL (NEGATIVE); KETONE, URINE AUTO TRACE mg/dL (NEGATIVE); LEUKOCYTE ESTERASE, URINE AUTO NEGATIVE (NEGATIVE); MUCUS, URINE SMALL (NEGATIVE); NITRITE, URINE AUTO NEGATIVE (NEGATIVE); PROTEIN, URINE AUTO 1+ mg/dL (NEGATIVE); RBC, URINE AUTO 3 /HPF (0-3); SPECIFIC GRAVITY URINE AUTO 1.024 (1.002-1.035); SQUAMOUS EPITHELIAL CELL UR AU 0 /HPF (0-6); UROBILINOGEN, URINE AUTO 0.2 mg/dL (0.0-2.0); WBC, URINE AUTO 1 /HPF (0-3)
[2019-08-07 11:37] LABS: BASO % 0.3 % (0.0-1.0); EOS # 0.2 10^3/uL (0.0-0.5); EOS % 1.7 % (0.0-3.0); HEMATOCRIT 46.6 % (42.0-52.0); HEMOGLOBIN 15.2 g/dl (13.5-17.5); LYMPH # 1.2 10^3/uL (1.5-5.0); LYMPH % 13.3 % (24.0-44.0); MEAN CORPUSCULAR HEMOGLOBIN 27.9 pg (27.0-33.0); MEAN CORPUSCULAR HGB CONC 32.6 g/dl (32.0-36.5); MEAN CORPUSCULAR VOLUME 85.7 fl (80.0-96.0); MONO # 0.5 10^3/uL (0.0-0.8); MONO % 5.9 % (0.0-5.0); NEUTROPHILS # 6.9 10^3/uL (1.5-8.5); NEUTROPHILS % 78.5 % (36.0-66.0); PLATELET COUNT, AUTOMATED 237 10^3/uL (150-450); RED BLOOD COUNT 5.44 10^6/uL (4.30-6.10); WHITE BLOOD COUNT 8.8 10^3/uL (4.0-10.0)
[2019-08-07 11:48] LABS: INR 1.09; PARTIAL THROMBOPLASTIN TIME 28.3 SECONDS (25.0-38.4); PROTHROMBIN TIME 13.8 SECONDS (11.8-14.0)
[2019-08-07 12:14] LABS: FREE T4 0.89 NG/DL (0.76-1.46); THYROID STIMULATING HORMONE 1.09 uIU/ML (0.358-3.740)
[2019-08-07 12:16] LABS: ALBUMIN 3.7 GM/DL (3.2-5.2); BILIRUBIN,TOTAL 0.4 MG/DL (0.2-1.0); CREATININE FOR GFR 1.41 MG/DL (0.70-1.30); GLOMERULAR FILTRATION RATE 52.6 (>42); POTASSIUM SERUM 4.3 MEQ/L (3.5-5.1); TOTAL PROTEIN 7.8 GM/DL (6.4-8.2)
--- NOTE | 2019-08-08 09:14 | MEDONC ---
MEDICAL ONCOLOGY CLINIC NOTE DATE OF ENCOUNTER: 08/07/2019 IDENTIFICATION AND CHIEF COMPLAINT: Alex Swift is an pleasant 74-year-old gentleman with stage IV renal cell carcinoma who returns to the medical oncology practice for review of treatment options and to sign consent in order to initiate therapy. HISTORY OF PRESENT ILLNESS: Mr. Swift was in his usual fair state of health until April 2019 when he developed cough accompanied by myalgias and chest pain. He presents to the emergency department at [facility], where imaging studies demonstrated what appeared to be a pneumonia, and he was prescribed antibiotics in the emergency department. In May 2019, he sustained an injury to his right shoulder and returned to the emergency department at [facility], where imaging studies showed a mass lesion in the chest. Subsequent CT scans showed extensive metastatic disease with a right upper lobe lung mass, as well as a right renal mass and retroperitoneal masses. CT-guided biopsy obtained July 11, 2019, documented renal cell carcinoma, but the specific histology could not be determined by the pathologists (specimen [id number] from [facility]). The patient was initially seen in this practice on August 04, 2019, and returns at this time for a discussion of treatment options. Avastin with Afinitor was recommended, but the patient reports intermittent cough is now accompanied by trace hemoptysis. He has had no fevers, chills, nor sweats but does have chest pain when he coughs heavily. His Karnofsky performance status is estimated at 80% to 90% at this time. ALLERGIES: None known. CURRENT MEDICATIONS: Aspirin 325 mg p.o. q. day, amlodipine 10 mg p.o. q. day, cyclobenzaprine 10 mg p.o. t.i.d., hydralazine 10 mg po TID; Insulin 200 units per mL on sliding scale as needed, metoprolol 50 mg p.o. b.i.d., trazodone 50 mg p.o. q. day as needed, Incruse Ellipta 6.25 mcg twice daily. PAST MEDICAL HISTORY: There is past history of essential hypertension, diabetes mellitus, and atherosclerotic coronary artery disease. The patient had myocardial infarction in the year 2012 and underwent coronary artery bypass grafting following initial coronary artery stenting. He has history of emphysema attributed to tobacco use and a history of chronic kidney disease stage III. There is also history of venous insufficiency, as well as renal cell carcinoma as noted. SOCIAL HISTORY: Tobacco: The patient smokes cigars on a regular basis but minimal cigarette use in the past. Alcohol: The patient rarely consumes alcohol. Illicit drugs: The patient does not use illicit drugs. FAMILY HISTORY: The patient's father at the age of 94 with history of diabetes mellitus and hypertension. The patient's mother at the age of 88 with history of diabetes mellitus and hypertension. REVIEW OF SYSTEMS: A complete review of systems was obtained for cough associated with pain on coughing, as well as trace hemoptysis over the past weekend. The patient does report in addition mild chronic low back pain, as well as mild joint pain. As noted, the review of systems is otherwise negative. PHYSICAL EXAMINATION: The patient is a well-developed, well-nourished, somewhat obese gentleman, awake, alert, and fully oriented, friendly and cooperative, in no distress. Temperature 98.1, pulse 88, respirations 20, blood pressure 138/68, pulse oximetry 94% on room air. Skin: Full turgor, anicteric. HEENT examination: Normocephalic, atraumatic. Pupils round and reactive. Extraocular muscles intact. Sclerae anicteric. Oropharynx without lesions. Neck: Supple without thyromegaly. Lymphatics: No pathologic lymphadenopathy noted. Lungs: Rales at the right base. Otherwise, clear to auscultation without wheezing or rhonchi. Cardiac examination: Regular rhythm. Point of maximal impulse nondisplaced. S1, S2, without gallop, rub, or murmur. Full pulses. Abdomen: Obese. Active bowel sounds. Soft, nontender without appreciable organomegaly. No guarding or rebound elicited. Rectal examination: Deferred. Extremities: 2+ edema of the lower extremities without clubbing or cyanosis. Neurological examination: Mental status intact. Cranial nerves intact. Motor and sensory grossly intact. LABORATORY DATA: Laboratory studies dated August 07, 2019, include white blood count 8800 per mcL, hemoglobin 15.2 g/dL, hematocrit 46.6%, platelet count 237,000. Sodium 137, potassium 4.3, chloride 103, bicarbonate 29, BUN 24, creatinine mildly elevated at 1.4 , fasting glucose 274 mg/dL, calcium 10 mg/dL, bilirubin total 0.4 mg/dL, alkaline phosphatase elevated at 152, LDH normal at 162, albumin 3.7 g/dL. IMPRESSION: Renal cell carcinoma of uncertain histologic subtype. The patient has widely metastatic disease, but his performance status remains fairly good at ECOG 1. He is eager to begin therapy, and Avastin with Afinitor was initially recommended. However, in view of hemoptysis, Avastin is not a safe drug given the risks of serious hemorrhage associated with its use, particularly in a patient with active bleeding. Temsirolimus has been documented to improve overall survival, as well as progression-free survival, in comparison with interferon sylvia, and this is a class I recommendation in the [facility] network guidelines. However, the pharmacy reports that temsirolimus is nonformulary and there may be a delay in obtaining that medication for this patient. Consequently, if Temsolimus cannot be obtained within the next two weeks, then sunitinib will be prescribed as initial therapy. PLAN: A nonformulary request was completed and given to the pharmacist at this time. The pharmacist indicated that the request would be submitted to the hospital P T Committee but that it was unlikely the drug would be available in the immediate future. Sunitinib 50 mg by mouth daily for 4 weeks with a 2-week hiatus followed by repetition of the cycle will be initiated if Temsirolimus cannot be obtained. Ongoing discussions with the pharmacy will determine which of these two treatment approaches the patient receives as initial therapy. He will return for re-evaluation in 1 week, or sooner if needed. If hemoptysis persists, he will be referred to a [facility]. Electronically Signed by Matthew Newman MD 08/08/2019 12:47 P DD: Matthew Newman MD 08/07/2019 07:03 P DT: [email or web address] 08/08/2019 08:46 A CC:
[2019-08-17 08:36] VITALS: BP 139/66
[2019-08-17 08:39] LABS: BASO % 0.5 % (0.0-1.0); EOS # 0.3 10^3/uL (0.0-0.5); HEMATOCRIT 46.4 % (42.0-52.0); HEMOGLOBIN 14.5 g/dl (13.5-17.5); LYMPH # 1.5 10^3/uL (1.5-5.0); LYMPH % 17.7 % (24.0-44.0); MEAN CORPUSCULAR HEMOGLOBIN 27.5 pg (27.0-33.0); MEAN CORPUSCULAR HGB CONC 31.3 g/dl (32.0-36.5); MONO # 0.5 10^3/uL (0.0-0.8); MONO % 6.5 % (0.0-5.0); NEUTROPHILS % 72.2 % (36.0-66.0); PLATELET COUNT, AUTOMATED 232 10^3/uL (150-450); RED BLOOD COUNT 5.27 10^6/uL (4.30-6.10); WHITE BLOOD COUNT 8.4 10^3/uL (4.0-10.0)
[2019-08-17 09:00] LABS: ALBUMIN 3.4 GM/DL (3.2-5.2); BILIRUBIN,TOTAL 0.4 MG/DL (0.2-1.0); CALCIUM LEVEL 9.3 MG/DL (8.8-10.2); CREATININE FOR GFR 1.33 MG/DL (0.70-1.30); GLOMERULAR FILTRATION RATE 56.3 (>42); POTASSIUM SERUM 4.1 MEQ/L (3.5-5.1); TOTAL PROTEIN 7.6 GM/DL (6.4-8.2)
--- NOTE | 2019-08-17 09:34 | ONC.PHACK ---
CHEMO ADMIN CHECKLIST Order Contains Pt ID: Name, Order on Chemo Order Form?: Yes Order Form Includes ALL: Correct Tx Day, Correct Date, Correct Cycle Number Pt ID on Order form Matches: Pt ID on PHA Label Med on Chemo OrderForm Matches: PHA Label, Med Used for Preparation [facility] Aug 17, 2019 09:34
--- NOTE | 2019-08-21 09:09 | MEDONC ---
MEDICAL ONCOLOGY CLINIC NOTE DATE OF SERVICE: 08/17/2019 IDENTIFICATION/CHIEF COMPLAINT: Alex Swift is a pleasant 74-year-old gentleman with stage IV renal cell carcinoma who returns to the medical oncology practice for clearance prior to a first infusion of temsirolimus. He reports "I still have the cough and it hurts in my chest when I cough, but I am doing otherwise okay." HISTORY OF PRESENT ILLNESS: Mr. Swift was in his usual fair state of health until April 2019 when he developed cough accompanied by myalgias and chest pain. He presented to the emergency department at [facility] where imaging studies demonstrated what initially appeared to be a pneumonia and he was prescribed antibiotics in the emergency department. In May 2019 he sustained injury to his right shoulder and returned to the emergency department where imaging studies showed a mass lesion in the chest. Subsequent CT scan showed extensive metastatic disease in the right upper lobe of the lung, as well as right renal mass and retroperitoneal masses. CT-guided biopsy obtained July 11, 2019 documented renal cell carcinoma but the specific histology could not be determined by the pathologists (specimen [id number] from [facility]). Following review of treatment options, [facility] obtained temsirolimus and he is to start this drug as a single agent at this time. He reports persistent cough associated with rib pain, and has chronic exertional dyspnea. However, he has had no fevers, chills, sweats nor new symptoms since his last visit of August 07, 2019. His Karnofsky performance status is estimated at 80% at this time. ALLERGIES: None known. CURRENT MEDICATIONS: - aspirin 325 mg p.o. daily - amlodipine 10 mg p.o. q. day - cyclobenzaprine 10 mg p.o. t.i.d. - hydralazine 10 mg p.o. t.i.d. - insulin 200 units per mL on sliding scale as needed - metoprolol 50 mg p.o. b.i.d. - trazodone 50 mg p.o. daily p.r.n. - Incruse Ellipta 6.259 mcg twice daily The patient uses supplemental oxygen from a concentrator. PAST MEDICAL HISTORY, SOCIAL HISTORY AND FAMILY HISTORY: Are as outpatient notes of August 07, 2019. REVIEW OF SYSTEMS: Complete review of systems was obtained and was significant for cough associated with pain in the anterior rib cage, as well as rare episodes of trace hemoptysis. The patient also reports chronic low back pain, as well as mild joint pain in the knees and ankles. The review of systems is otherwise negative. PHYSICAL EXAMINATION: The patient is well-developed, well-nourished gentleman, awake, alert and fully oriented, friendly and cooperative in no acute distress. Temperature 98.5, pulse 93, respirations 20, blood pressure 139/66, oxygen saturation 91% on supplemental oxygen. Skin: Full turgor, anicteric. HEENT: Normocephalic, atraumatic. Pupils equal round reactive to light and accommodate. Extraocular muscles intact. Sclerae anicteric. Oropharynx without lesions. Neck: Supple without thyromegaly. Lymphatics: No pathologic lymphadenopathy noted in the cervical, supraclavicular, axillary, inguinal regions. Lungs: Rales bilaterally without wheezing. Cardiac: Regular rhythm. Point of maximal impulse nondisplaced. S1, S2 without gallop or murmur. Full pulses. Abdomen: Obese. Active bowel sounds, soft, nontender without appreciable thyromegaly. Rectal: Examination deferred. Extremities: 2+ edema of the lower extremities. LABORATORY DATA: Laboratory studies dated August 19, 2019 include white blood count 8100 per microliter, hemoglobin 14.5 g/dL, hematocrit 46.4%, platelet count 232,000. Serum chemistries are pending at this time. IMPRESSION: Renal cell carcinoma, histologic subtype uncertain. The patient has widely metastatic renal cell carcinoma, a fatal disease. Temsirolimus has been shown in prospective randomized clinical trial to improve survival compared to placebo or interferon. Consequently, he will begin infusion with Temsirolimus at this time. He has previously signed consent. PLAN: Mr. Swift will receive a first infusion of Temsirolimus at this time. He will be premedicated with diphenhydramine and monitored closely. Temsirolimus 25 mg will be administered intravenously and he will continue this therapy weekly with restaging in 2 months, or sooner if the need arises. Electronically Signed by Matthew Newman MD 08/21/2019 11:11 A DD: Matthew Newman MD 08/17/2019 08:50 A DT: [email or web address] 08/21/2019 08:16 A CC:
[2019-08-25 08:42] VITALS: BP 148/73
[2019-08-25 09:20] LABS: BASO % 0.4 % (0.0-1.0); EOS # 0.3 10^3/uL (0.0-0.5); HEMATOCRIT 44.9 % (42.0-52.0); HEMOGLOBIN 14.4 g/dl (13.5-17.5); LYMPH # 1.2 10^3/uL (1.5-5.0); LYMPH % 17.6 % (24.0-44.0); MEAN CORPUSCULAR HEMOGLOBIN 27.4 pg (27.0-33.0); MEAN CORPUSCULAR HGB CONC 32.1 g/dl (32.0-36.5); MEAN CORPUSCULAR VOLUME 85.4 fl (80.0-96.0); MONO # 0.5 10^3/uL (0.0-0.8); NEUTROPHILS # 4.7 10^3/uL (1.5-8.5); NEUTROPHILS % 70.9 % (36.0-66.0); PLATELET COUNT, AUTOMATED 138 10^3/uL (150-450); RED BLOOD COUNT 5.26 10^6/uL (4.30-6.10); WHITE BLOOD COUNT 6.7 10^3/uL (4.0-10.0)
[2019-08-25 09:56] LABS: ALBUMIN 3.4 GM/DL (3.2-5.2); BILIRUBIN,TOTAL 0.5 MG/DL (0.2-1.0); CALCIUM LEVEL 9.1 MG/DL (8.8-10.2); CREATININE FOR GFR 1.34 MG/DL (0.70-1.30); GLOMERULAR FILTRATION RATE 55.8 (>42); POTASSIUM SERUM 4.3 MEQ/L (3.5-5.1); TOTAL PROTEIN 7.7 GM/DL (6.4-8.2)
[2019-08-30 13:15] VITALS: BP 120/89
[2019-08-30 13:18] LABS: BASO % 0.5 % (0.0-1.0); EOS # 0.2 10^3/uL (0.0-0.5); EOS % 2.5 % (0.0-3.0); HEMATOCRIT 44.5 % (42.0-52.0); HEMOGLOBIN 14.5 g/dl (13.5-17.5); LYMPH # 1.4 10^3/uL (1.5-5.0); LYMPH % 22.7 % (24.0-44.0); MEAN CORPUSCULAR HEMOGLOBIN 27.4 pg (27.0-33.0); MEAN CORPUSCULAR HGB CONC 32.6 g/dl (32.0-36.5); MEAN CORPUSCULAR VOLUME 84.1 fl (80.0-96.0); MONO # 0.3 10^3/uL (0.0-0.8); MONO % 5.4 % (0.0-5.0); NEUTROPHILS # 4.1 10^3/uL (1.5-8.5); NEUTROPHILS % 68.7 % (36.0-66.0); PLATELET COUNT, AUTOMATED 130 10^3/uL (150-450); RED BLOOD COUNT 5.29 10^6/uL (4.30-6.10)
[2019-08-30 13:38] LABS: ALBUMIN 3.6 GM/DL (3.2-5.2); BILIRUBIN,TOTAL 0.3 MG/DL (0.2-1.0); CALCIUM LEVEL 9.2 MG/DL (8.8-10.2); CREATININE FOR GFR 1.4 MG/DL (0.70-1.30); POTASSIUM SERUM 4.2 MEQ/L (3.5-5.1); TOTAL PROTEIN 7.8 GM/DL (6.4-8.2)
--- NOTE | 2019-08-31 09:45 | MEDONC ---
DATE OF SERVICE: 08/30/2019 CHIEF COMPLAINT: Mr. Swift is a pleasant 74-year-old white male with stage IV renal cell carcinoma who is followed up at the medical clinic. The patient was started on infusion with Torisel. HISTORY OF PRESENT ILLNESS: Mr. Swift was in his usual state of health until April 2019 when he developed cough accompanied by myalgias and chest pain. He presented to the emergency department at [facility] where imaging studies showed what initially appeared to be pneumonia and prescribed antibiotics at the emergency department. In May 2019 he sustained injury to his right shoulder and returned to the emergency department where imaging studies showed a mass lesion in the chest. Subsequent CT scan showed extensive metastatic disease in the right upper lobe of the lung, as well as right renal mass and retroperitoneal masses. CT guided biopsy obtained on July 11, 2019 documented renal cell carcinoma but the specific histology could not be determined by the pathologist. Following review of the treatment options, [facility] obtained Torisel and he is to started on this medication. The patient received two doses of this medicine. The patient still reports a persistent cough. He denies any fevers, chills, sweats or new symptoms. The patient uses supplemental oxygen from a concentrator on exertion. His past medical history, social history, and family history shows no change his last visit on 08/17/2019. REVIEW OF SYSTEMS: The patient still has significant cough associated with pain in the anterior rib cage. The patient also reports chronic low back pain, as well as mild joint pain in the knees and ankles. PHYSICAL EXAMINATION: The patient is well-developed, well-nourished male, alert and fully oriented, in no acute distress. Vital signs are stable, although he is short of breath. SKIN: Normal skin turgor, anicteric. HEENT: Normocephalic, atraumatic. Sclera anicteric. Oral cavity without lesions. NECK: Supple without thyromegaly. LYMPHATICS: No lymphadenopathy noted in the cervical, supraclavicular, axillary and inguinal regions. LUNGS: Rales bilaterally without wheezing. CARDIOVASCULAR SYSTEM: Regular rate and rhythm. S1 and S2 heard without gallop or murmur. ABDOMEN: Obese. Active bowel sounds, soft, nontender without appreciable thyromegaly. EXTREMITIES: 2+ edema of the lower extremities. LABORATORY DATA: WBC 6000, hemoglobin 14.5, platelets 130,000, slightly low. Blood chemistry Na 139, K 4.2, BUN 24, creatinine 1.4. The patient has evidence of chronic renal insufficiency. LDH is high at 230. IMPRESSION: Renal cell carcinoma, histologic subtype uncertain. The patient is aware that his prognosis is poor. He may live less than six months and if he responds to treatment he may live a few more months. The patient was started on Torisel infusions weekly. PLAN: The patient already received two doses of Torisel infusion weekly. He will continue weekly Torisel for two months. After two months, we will check and see whether he is responding to the treatment or not. If he does not respond, will consider to use axitinib and Keytruda. Electronically Signed by Florinda Wiggins MD 09/01/2019 05:45 P DD: Florinda Wiggins MD 08/30/2019 04:44 P DT: [email or web address] 08/31/2019 09:18 A CC:
[2019-09-01 09:41] VITALS: BP 122/64
--- NOTE | 2019-09-01 09:58 | ONC.PHACK ---
CHEMO ADMIN CHECKLIST Order Contains Pt ID: Name, Order on Chemo Order Form?: Yes Order Form Includes ALL: Correct Tx Day, Correct Date, Correct Cycle Number Pt ID on Order form Matches: Pt ID on PHA Label Med on Chemo OrderForm Matches: PHA Label, Med Used for Preparation [facility] Sep 01, 2019 09:58
[2019-09-06 11:38] VITALS: BP 147/75
--- NOTE | 2019-09-07 09:26 | MEDONC ---
MEDICAL ONCOLOGY CLINIC NOTE: DATE OF ENCOUNTER: 09/06/2019 IDENTIFICATION AND CHIEF COMPLAINT: Alex Swift is a pleasant 74-year-old gentleman with stage IV renal cell carcinoma who returns to the medical oncology practice for urgent evaluation, reporting "I have had a really bad headache for the last 4 days". HISTORY OF PRESENT ILLNESS: Alex Swift is a 74-year-old gentleman who was in his usual fair state of health until April 2019, when he developed cough accompanied by myalgias and chest pain. He presented to the emergency department at [facility] where imaging studies demonstrated what initially appeared to be a pneumonia, and he was prescribed antibiotics in the emergency department. In May 2019, he sustained trauma to the shoulder, with significant pain, and he returned to the emergency department, where imaging studies showed a mass lesion in the chest. Subsequent CT scan showed extensive metastatic disease in the right upper lobe of the lung, as well as right renal mass and retroperitoneal masses. A CT-guided biopsy obtained July 11, 2019 documented renal cell carcinoma, but the specific histology could not be determined by the pathologists. (specimen [id number] from [facility]). Following a review of treatment options, [facility] obtained temsirolimus for the patient and he began therapy in July 2019. He has now received three infusions of the drug on a weekly basis. The patient returns at this time, reporting severe headache present for the last 4 days. In the course of describing the headaches, he noted that this headache has been present for many months intermittently. The headache is localized to the frontal area and is unassociated with nausea. He does report occasional blurring of vision but this typically occurs when he has significant hyperglycemia. The patient also reports tinnitus but states that this has been lifelong. He rates his headache at present as a 4/10 in intensity. It is not exacerbated by cough or by sneezing. He reports no recent fevers, chills nor sweats. His overall Karnofsky performance status is estimated at 60-70%, limited by exertional dyspnea and his cumbersome supplemental oxygen supply. ALLERGIES: None known. CURRENT MEDICATIONS: - amlodipine 10 mg p.o. daily - aspirin enteric-coated 325 mg p.o. daily - atorvastatin 40 mg p.o. daily - cyclobenzaprine 10 mg p.o. t.i.d. - Flovent HFA 44 mcg q.i.d. - hydralazine 10 mg p.o. t.i.d. - insulin degludec on sliding scale - metoprolol 50 mg p.o. b.i.d. - trazodone 50 mg p.o. daily p.r.n. pain - Incruse Ellipta 62.5 mcg inhaler PAST MEDICAL HISTORY, SOCIAL HISTORY, AND FAMILY HISTORY: The patient's past medical history, social history, and family history as are per outpatient notes of August 07, 2019. REVIEW OF SYSTEMS: A complete review of systems was obtained and was significant for cough associated with pain in the anterior rib cage, which is decreased since his prior visit. The patient also reports chronic low back pain as well as mild joint pain in the knees and ankles. As noted the patient has headache tinnitus and occasional blurred vision. The remainder of the review of systems was obtained and was otherwise negative. PHYSICAL EXAMINATION: The patient is a well-developed, well-nourished gentleman, awake, alert and fully oriented, friendly and cooperative in no distress. Temperature 98.0, pulse 97, respirations 24, blood pressure 147/75, oxygen saturation 94% on 3 liters by nasal cannula. HEENT EXAMINATION: Normocephalic, atraumatic. Pupils equal round and react to light and accommodate, extra muscles intact. Sclerae anicteric. Oropharynx without lesions. NECK: Supple without thyromegaly. LYMPHATICS: No pathologic lymphadenopathy noted. LUNGS : Dry rales bilaterally without wheezing, prolonged expiratory phase. CARDIAC EXAM: Regular rhythm. Point of maximal impulse nondisplaced. S1, S2 without gallop or murmur. Full pulses. ABDOMEN: Obese. Active bowel sounds, soft, nontender without organomegaly. RECTAL EXAMINATION: Deferred. EXTREMITIES: 2+ edema of the lower extremities. NEUROLOGIC EXAMINATION: Mental status intact. Cranial nerves intact. Motor and sensory fully intact. LABORATORY DATA: Laboratory studies dated August 30, 2019 include white blood count 6000 microliter, hemoglobin 14.5 gm/dL, hematocrit 44.5%, platelet count 130,000, BUN 24, creatinine 1.4 mg/dL, glucose 334 mg/dL, total bilirubin 0.3 mg/dL, alkaline phosphatase elevated at 230, albumin 3.6 gm/dL. IMPRESSION PROBLEM #1: Renal cell carcinoma: The patient has renal cell carcinoma metastatic to retroperitoneum lymph nodes and the lung. He appears to be tolerating temsirolimus fairly well, complicated by mild thrombocytopenia. PROBLEM #2: Headache: The patient has had headaches intermittently for many months, with recent MRI of the brain showing no mass lesions. The etiology of his headaches is unclear, but he reports intermittent throbbing character and seems to localize the headache to the left frontal region. Consequently, this may be a vascular headache and a trial of sumatriptan appears appropriate. The use of sumatriptan was reviewed with the patient and due to his insurance constraints, it appears that only injection form is available to him. PLAN: Mr. Swift was prescribed Imitrex 6 mg injection with instructions to repeat the dose once in the course of a 24 hour period if headache is unrelieved by the first dose. He was asked to contact this practice to notify the providers as to whether or not sumatriptan improves his headache. He has a favorable response, sumatriptan will be prescribed and he will be referred to a neurologist. The patient is "cleared" to proceed with temsirolimus therapy, and as it is hoped that he will continue therapy and then be restaged after approximately 8 weeks of treatment. The patient concurred with this plan. He will return for reevaluation in 2 weeks or sooner if the need arises. Electronically Signed by Matthew Newman MD 09/09/2019 09:50 P DD: Matthew Newman MD 09/06/2019 06:16 P DT: [email or web address] 09/07/2019 09:07 A CC:
[2019-09-08 10:00] VITALS: BP 135/70
[2019-09-08 10:31] LABS: BASO % 0.7 % (0.0-1.0); EOS # 0.1 10^3/uL (0.0-0.5); EOS % 3.1 % (0.0-3.0); HEMATOCRIT 40.2 % (42.0-52.0); LYMPH # 0.8 10^3/uL (1.5-5.0); LYMPH % 18.6 % (24.0-44.0); MEAN CORPUSCULAR HGB CONC 32.3 g/dl (32.0-36.5); MEAN CORPUSCULAR VOLUME 83.6 fl (80.0-96.0); MONO # 0.5 10^3/uL (0.0-0.8); MONO % 11.1 % (0.0-5.0); NEUTROPHILS # 2.8 10^3/uL (1.5-8.5); NEUTROPHILS % 66.3 % (36.0-66.0); PLATELET COUNT, AUTOMATED 143 10^3/uL (150-450); RED BLOOD COUNT 4.81 10^6/uL (4.30-6.10); WHITE BLOOD COUNT 4.2 10^3/uL (4.0-10.0)
[2019-09-08 10:57] LABS: CALCIUM LEVEL 8.5 MG/DL (8.8-10.2); CREATININE FOR GFR 2.47 MG/DL (0.70-1.30); GLOMERULAR FILTRATION RATE 27.5 (>42); POTASSIUM SERUM 3.9 MEQ/L (3.5-5.1)
[2019-09-08 10:58] LABS: ALBUMIN 3.1 GM/DL (3.2-5.2); BILIRUBIN,TOTAL 0.4 MG/DL (0.2-1.0); TOTAL PROTEIN 7.1 GM/DL (6.4-8.2)
[2019-09-08 13:14] LABS: INR 1.07; PROTHROMBIN TIME 13.6 SECONDS (11.8-14.0)
[2019-09-15 09:19] LABS: BASO # 0.1 10^3/uL (0.0-0.2); BASO % 0.7 % (0.0-1.0); EOS % 0.5 % (0.0-3.0); HEMATOCRIT 37.1 % (42.0-52.0); HEMOGLOBIN 12.2 g/dl (13.5-17.5); LYMPH # 1.1 10^3/uL (1.5-5.0); MEAN CORPUSCULAR HEMOGLOBIN 26.9 pg (27.0-33.0); MEAN CORPUSCULAR HGB CONC 32.9 g/dl (32.0-36.5); MEAN CORPUSCULAR VOLUME 81.9 fl (80.0-96.0); MONO # 0.8 10^3/uL (0.0-0.8); NEUTROPHILS # 6.5 10^3/uL (1.5-8.5); NEUTROPHILS % 76.2 % (36.0-66.0); PLATELET COUNT, AUTOMATED 298 10^3/uL (150-450); RED BLOOD COUNT 4.53 10^6/uL (4.30-6.10); WHITE BLOOD COUNT 8.6 10^3/uL (4.0-10.0)
[2019-09-15 09:25] VITALS: BP 122/64
[2019-09-15 09:39] LABS: BILIRUBIN,TOTAL 0.4 MG/DL (0.2-1.0); CALCIUM LEVEL 8.3 MG/DL (8.8-10.2); CREATININE FOR GFR 1.55 MG/DL (0.70-1.30); GLOMERULAR FILTRATION RATE 47.2 (>42); POTASSIUM SERUM 3.5 MEQ/L (3.5-5.1); TOTAL PROTEIN 6.7 GM/DL (6.4-8.2)
--- NOTE | 2019-09-15 11:25 | ONC.PHACK ---
CHEMO ADMIN CHECKLIST Order Contains Pt ID: Name, Order on Chemo Order Form?: Yes Order Form Includes ALL: Correct Tx Day, Correct Date, Correct Cycle Number Pt ID on Order form Matches: Pt ID on PHA Label Med on Chemo OrderForm Matches: PHA Label, Med Used for Preparation [facility] Sep 15, 2019 11:24
--- NOTE | 2019-09-21 10:14 | MEDONC ---
MEDICAL ONCOLOGY OFFICE NOTE DATE OF ENCOUNTER: 09/15/2019 IDENTIFICATION AND CHIEF COMPLAINT: Alex Swift is a very pleasant 74-year-old gentleman with stage IV renal cell carcinoma who returns for reevaluation, reporting "My headaches are gone now. I've been feeling pretty good lately." HISTORY OF PRESENT ILLNESS: Alex Swift is a 74-year-old gentleman who was in his usual fair state of health until April 2019, when he developed cough accompanied by myalgias and chest pain. He presented to the emergency department at [facility], where imaging studies demonstrated what initially appeared to be a pneumonia, and he was prescribed antibiotics in the emergency department. However, in May 2019, he sustained trauma to the right shoulder with significant pain, and he returned to the emergency department where imaging studies showed a mass lesion in the chest. CT scan showed extensive metastatic disease in the right upper lobe of the lung, as well as right renal mass and retroperitoneal masses. A CT-guided biopsy obtained July 11, 2019 documented renal cell carcinoma with specific histology could not be determined by the pathologists (specimen [id number]). Following a review of treatment options, [facility] obtained temsirolimus for the patient and he in therapy in July 2019. He has now received four infusions of the drug on a weekly basis. Mr. Swift returns at this time, reporting he feels well. He was last seen in this practice on September 06, 2019 at which time he was having headaches. Recent MRI showed no anatomic abnormalities in the brain. His headaches, he states, have now resolved and he is tolerating therapy with temsirolimus well. The patient reports lifelong tinnitus and this has not changed recently. He is undertaking most activities of daily living with a Karnofsky performance status estimated at 70%, limited by exertional dyspnea and his cumbersome supplemental oxygen supply, which he requires due to emphysema. He has had no recent fevers, chills, or sweats. ALLERGIES: None known. CURRENT MEDICATIONS: - amlodipine 10 mg p.o. q. day - atorvastatin 40 mg p.o. q. day - hydralazine 10 mg p.o. t.i.d. - aspirin enteric-coated 325 mg p.o. q. day - Flovent HFA 45 mcg inhaler q.i.d. - cyclobenzaprine 10 mg - insulin degludec on sliding scale - metoprolol 50 mg p.o. b.i.d. - trazodone 50 mg p.o. q.p.m. p.r.n. - Incruse Ellipta 62.5 mcg inhaler daily PAST MEDICAL HISTORY, SOCIAL HISTORY, AND FAMILY HISTORY: The patient's past medical, social, and family history are as per outpatient notes of August 07, 2019. REVIEW OF SYSTEMS: A complete review of systems was obtained and was significant for cough associated with pain in the anterior rib cage, which has continued to decrease in frequency and intensity over time in the last month. The patient also reports chronic low back pain as well as mild joint pain in the knees and ankles. The patient has chronic exertional dyspnea due to emphysema. Headache previously present has now resolved, although tinnitus persists. Review of systems was otherwise negative. PHYSICAL EXAMINATION: The patient is well-developed, well-nourished gentleman, awake, alert, and fully oriented, friendly and cooperative, in no acute distress, using oxygen by nasal cannula at 3 liters per minute. Temperature 98.0, pulse 81, respirations 24, blood pressure 122/64, oxygen saturation 91% on 3 liters. Skin: Full turgor, anicteric and without active lesions. HEENT examination: Normocephalic, atraumatic. Pupils equal, round, reactive to light and accommodate. Extraocular muscles intact. Sclerae anicteric. Oropharynx without lesions. Neck: Supple without thyromegaly. Lymphatics: No pathologic lymphadenopathy noted. Lungs: Dry rales bilaterally without wheezing, but prolonged expiratory phase noted. Cardiac exam: Regular rhythm. Point of maximal impulse nondisplaced. S1, S2, without gallop, rub, or murmur. Full pulses. Abdomen: Obese. Active bowel sounds, soft, nontender, without organomegaly. Rectal examination: Deferred. Extremities: 1+ edema of the lower extremities. Neurologic exam: Mental status intact. Cranial nerves intact. Motor and sensory grossly intact. LABORATORY DATA: Laboratory studies dated September 15, 2019 include white blood count 8600 per microliter, hemoglobin 12.2 g/dL, hematocrit 37.1%, platelet count 298,000. BUN 13, creatinine 1.55 mg/dL, glucose 231 mg/dL, total bilirubin 0.4 mg/dL. IMPRESSION: Renal cell carcinoma. The patient has renal cell carcinoma metastatic to retroperitoneum and the lung. He is tolerating Torisel extremely well thus far He will be due for restaging in the near future and, therefore, CT scans will be scheduled. PLAN: Mr. Swift was asked to continue weekly temsirolimus, and CT scan of the chest, abdomen, pelvis will be scheduled for early September 2019. He will return for physician reevaluation after CT scans or sooner if the need arises. Mr. Swift concurred with this plan. Electronically Signed by Matthew Newman MD 09/21/2019 12:33 P DD: Matthew Newman MD 09/15/2019 01:15 P DT: [email or web address] 09/21/2019 09:54 A CC: DAVID Kasper MD
[2019-09-22 10:33] VITALS: BP 142/71
[2019-09-22 10:51] LABS: BASO % 0.6 % (0.0-1.0); EOS # 0.2 10^3/uL (0.0-0.5); EOS % 2.6 % (0.0-3.0); HEMATOCRIT 41.5 % (42.0-52.0); HEMOGLOBIN 13.1 g/dl (13.5-17.5); LYMPH # 1.2 10^3/uL (1.5-5.0); LYMPH % 18.6 % (24.0-44.0); MEAN CORPUSCULAR HEMOGLOBIN 26.6 pg (27.0-33.0); MEAN CORPUSCULAR HGB CONC 31.6 g/dl (32.0-36.5); MEAN CORPUSCULAR VOLUME 84.2 fl (80.0-96.0); MONO # 0.5 10^3/uL (0.0-0.8); NEUTROPHILS # 4.5 10^3/uL (1.5-8.5); NEUTROPHILS % 69.9 % (36.0-66.0); PLATELET COUNT, AUTOMATED 260 10^3/uL (150-450); RED BLOOD COUNT 4.93 10^6/uL (4.30-6.10); WHITE BLOOD COUNT 6.5 10^3/uL (4.0-10.0)
[2019-09-22 11:21] LABS: ALBUMIN 3.4 GM/DL (3.2-5.2); BILIRUBIN,TOTAL 0.5 MG/DL (0.2-1.0); CALCIUM LEVEL 9.2 MG/DL (8.8-10.2); CREATININE FOR GFR 1.28 MG/DL (0.70-1.30); GLOMERULAR FILTRATION RATE 58.8 (>42); POTASSIUM SERUM 3.9 MEQ/L (3.5-5.1); TOTAL PROTEIN 7.5 GM/DL (6.4-8.2)
--- NOTE | 2019-09-22 11:55 | ONC.PHACK ---
CHEMO ADMIN CHECKLIST Order Contains Pt ID: Name, Order on Chemo Order Form?: Yes Order Form Includes ALL: Correct Tx Day, Correct Date, Correct Cycle Number Pt ID on Order form Matches: Pt ID on PHA Label Med on Chemo OrderForm Matches: PHA Label, Med Used for Preparation [facility] Sep 22, 2019 11:55
--- NOTE | 2019-09-25 09:20 | MEDONC ---
MEDICAL ONCOLOGY OFFICE NOTE DATE OF ENCOUNTER: 09/22/2019 IDENTIFICATION AND CHIEF COMPLAINT: Alex Swift is a very pleasant 74-year-old gentleman with stage IV renal cell carcinoma who returns for reevaluation reporting, "I feel the best I have felt in the last 6 months. Other than my emphysema, I really do not have any problems right now". HISTORY OF PRESENT ILLNESS: Alex Swift is a 74-year-old gentleman who was in his usual fair state of health until April 2019, when he developed cough accompanied by myalgias and chest pain. He presented to the emergency department at [facility], where imaging studies demonstrated what initially appeared to be a pneumonia, and he was prescribed antibiotics in the emergency department. However, in May 2019, he sustained trauma to the right shoulder with significant pain, and he returned to the emergency department, where imaging studies showed a mass lesion in the chest. CT scan confirmed extensive metastatic disease in the right upper lobe of the lung, as well as, a right renal mass and retroperitoneal masses. A CT-guided biopsy obtained July 11, 2019 documented renal cell carcinoma. The specific histology could not be determined by the pathologists (specimen [id number] from [facility]). Following a review of treatment options, [facility] obtained temsirolimus for the patient, and he began therapy in July 2019. He has now received five infusions of the drug on a weekly basis. He returns at this time reporting that he feels well and, indeed, he reports this is the best he has felt in the last 6 months. Previously noted headaches have resolved, although he has chronic mild tinnitus which he says is not an issue for him. He is undertaking most activities of daily living with a Karnofsky performance status now estimated at 80%, limited by chronic exertional dyspnea and the cumbersome supplemental oxygen supply which he carries and is required due to longstanding emphysema. He has had no recent fevers, chills or sweats. ALLERGIES: The patient has no known medication allergies. CURRENT MEDICATIONS: Amlodipine 10 mg p.o. q. day, atorvastatin 40 mg p.o. q. day, hydralazine 10 mg p.o. t.i.d., metoprolol 50 mg p.o. b.i.d., enteric-coated aspirin 325 mg p.o. q. day, cyclobenzaprine 10 mg p.o. q. day, Flovent HFA 45 mcg inhaler q.i.d., insulin degludec on sliding scale, trazodone 50 mg p.o. q.p.m. p.r.n., Incruse Ellipta 62.5 mcg inhaler daily. PAST MEDICAL, SOCIAL AND FAMILY HISTORY: The patient's past medical, social, and family history are as per outpatient oncology notes of August 07, 2019. REVIEW OF SYSTEMS: A complete review of systems was obtained and was significant only for chronic low back pain as well as mild joint pain in the knees and ankles. The patient also has chronic exertional dyspnea due to emphysema for which he carries oxygen in a concentrator. Of note, cough which was associated with anterior rib cage pain has now resolved fully. The complete review of systems was otherwise negative. PHYSICAL EXAMINATION: The patient is well-developed, well-nourished, gentleman, awake, alert and fully oriented, friendly and cooperative, in no distress, with supplemental oxygen in place. Temperature 98.1, pulse 81, respirations 24, blood pressure 142/71, oxygen saturation 91% on supplemental oxygen by nasal cannula at 3 liters per minute. Skin: Full turgor, anicteric and without active lesions. HEENT Examination: Normocephalic, atraumatic. Pupils round, reactive and accommodate. Extraocular muscles intact. Sclerae anicteric. Oropharynx without lesions. Neck: Supple without thyromegaly. Lymphatics: N o pathologic lymphadenopathy noted. Lungs: Dry rales bilaterally without wheezing, but prolonged expiratory phase noted. Cardiac Exam: Regular rhythm. Point of maximal impulse nondisplaced. S1, S2, without gallop, rub or murmur noted. Full Pulses throughout. Abdomen: Obese, active bowel sounds, soft, nontender, without organomegaly. Rectal Examination: Deferred. Extremities: Trace edema of the lower extremities. No cyanosis. Neurologic Examination: Mental status intact. Cranial nerves intact. Motor and sensory grossly intact. LABORATORY DATA: Laboratory studies dated September 22, 2019 include a white blood count 6500 per microliter, hemoglobin 13.1 grams per deciliter, hematocrit 41.5%, platelet count 260,000, BUN 16, creatinine 1.28 mg per deciliter, glucose 193 mg per deciliter, alkaline phosphatase elevated at 141, albumin 3.4 grams per deciliter. IMPRESSION: Renal cell carcinoma. The patient has stage IV renal cell carcinoma metastatic to lung and retroperitoneum. He is tolerating TORISEL extremely well thus far without evident toxicities. Clinically, he appears to have responded well to this drug with resolution of his symptoms of cough and chest pain. However, an assessment will need to be based on objective data, in particular, imaging studies. CT scan of the chest is anticipated to be performed in early September for restaging along with MRI of the abdomen and pelvis without contrast in order to minimize the risk of nephrotoxicity. PLAN: Mr. Swift will continue weekly temsirolimus and imaging studies have been scheduled for early September 2019. He will continue weekly infusions of temsirolimus and return for physician reevaluation in 2 weeks, or sooner if the need arises. Electronically Signed by Matthew Newman MD 09/26/2019 05:00 P DD: Matthew Newman MD 09/22/2019 12:43 P DT: [email or web address] 09/25/2019 08:41 A CC: DAVID Kasper MD
[2019-09-29 10:30] VITALS: BP 120/69
[2019-09-29 10:55] LABS: BASO % 0.4 % (0.0-1.0); EOS # 0.1 10^3/uL (0.0-0.5); EOS % 1.1 % (0.0-3.0); HEMATOCRIT 38.8 % (42.0-52.0); HEMOGLOBIN 12.3 g/dl (13.5-17.5); LYMPH # 0.9 10^3/uL (1.5-5.0); LYMPH % 15.3 % (24.0-44.0); MEAN CORPUSCULAR HEMOGLOBIN 26.4 pg (27.0-33.0); MEAN CORPUSCULAR HGB CONC 31.7 g/dl (32.0-36.5); MEAN CORPUSCULAR VOLUME 83.3 fl (80.0-96.0); MONO # 0.4 10^3/uL (0.0-0.8); MONO % 7.7 % (0.0-5.0); NEUTROPHILS # 4.2 10^3/uL (1.5-8.5); NEUTROPHILS % 75.3 % (36.0-66.0); PLATELET COUNT, AUTOMATED 122 10^3/uL (150-450); RED BLOOD COUNT 4.66 10^6/uL (4.30-6.10); WHITE BLOOD COUNT 5.6 10^3/uL (4.0-10.0)
[2019-09-29 11:27] LABS: ALBUMIN 3.1 GM/DL (3.2-5.2); BILIRUBIN,TOTAL 0.3 MG/DL (0.2-1.0); CALCIUM LEVEL 8.7 MG/DL (8.8-10.2); CREATININE FOR GFR 1.39 MG/DL (0.70-1.30); GLOMERULAR FILTRATION RATE 53.5 (>42); POTASSIUM SERUM 3.9 MEQ/L (3.5-5.1); TOTAL PROTEIN 7.4 GM/DL (6.4-8.2)
--- NOTE | 2019-09-29 11:51 | ONC.PHACK ---
CHEMO ADMIN CHECKLIST Order Contains Pt ID: Name, Order on Chemo Order Form?: Yes Order Form Includes ALL: Correct Tx Day, Correct Date, Correct Cycle Number Pt ID on Order form Matches: Pt ID on PHA Label Med on Chemo OrderForm Matches: PHA Label, Med Used for Preparation [facility] Sep 29, 2019 11:50
[2019-10-06 09:44] LABS: BASO % 0.4 % (0.0-1.0); EOS # 0.2 10^3/uL (0.0-0.5); EOS % 3.1 % (0.0-3.0); HEMATOCRIT 39.4 % (42.0-52.0); HEMOGLOBIN 12.5 g/dl (13.5-17.5); LYMPH # 0.9 10^3/uL (1.5-5.0); MEAN CORPUSCULAR HEMOGLOBIN 26.3 pg (27.0-33.0); MEAN CORPUSCULAR HGB CONC 31.7 g/dl (32.0-36.5); MEAN CORPUSCULAR VOLUME 82.8 fl (80.0-96.0); MONO # 0.5 10^3/uL (0.0-0.8); MONO % 9.6 % (0.0-5.0); NEUTROPHILS # 3.5 10^3/uL (1.5-8.5); NEUTROPHILS % 68.7 % (36.0-66.0); PLATELET COUNT, AUTOMATED 148 10^3/uL (150-450); RED BLOOD COUNT 4.76 10^6/uL (4.30-6.10); WHITE BLOOD COUNT 5.1 10^3/uL (4.0-10.0)
[2019-10-06 09:47] VITALS: BP 130/64
[2019-10-06 10:14] LABS: ALBUMIN 3.3 GM/DL (3.2-5.2); BILIRUBIN,TOTAL 0.4 MG/DL (0.2-1.0); CALCIUM LEVEL 8.6 MG/DL (8.8-10.2); CREATININE FOR GFR 1.32 MG/DL (0.70-1.30); GLOMERULAR FILTRATION RATE 56.8 (>42); POTASSIUM SERUM 3.6 MEQ/L (3.5-5.1); TOTAL PROTEIN 7.3 GM/DL (6.4-8.2)
--- NOTE | 2019-10-06 10:40 | ONC.PHACK ---
CHEMO ADMIN CHECKLIST Order Contains Pt ID: Name, Order on Chemo Order Form?: Yes Order Form Includes ALL: Correct Tx Day, Correct Date, Correct Cycle Number Pt ID on Order form Matches: Pt ID on PHA Label Med on Chemo OrderForm Matches: PHA Label, Med Used for Preparation [facility] Oct 06, 2019 10:40
--- NOTE | 2019-10-09 11:29 | MEDONC ---
MEDICAL ONCOLOGY OFFICE NOTE DATE OF ENCOUNTER: 10/06/2019 IDENTIFICATION AND CHIEF COMPLAINT: Alex Swift is a very pleasant 74-year-old gentleman with stage IV renal cell carcinoma who returns for reevaluation reporting "I'm still feeling very well. Other than my shortness of breath which is no worse than it had been, I'm doing well." HISTORY OF PRESENT ILLNESS: Alex Swift is a 74-year-old gentleman who was in his usual fair state of health until April 2019 when he developed cough accompanied by myalgias and chest pain. He presented to the emergency department at [facility] where imaging studies demonstrated what was initially felt to be a pneumonia, and he was prescribed antibiotic. However, in May 2019, he sustained trauma to the right shoulder with significant pain and returned to the emergency department where imaging studies showed a mass lesion in his chest. CT scan confirmed extensive metastatic disease in the right upper lobe of the lung, as well as a right renal mass and retroperitoneal masses. CT-guided biopsy obtained July 11, 2019, documented renal cell carcinoma. The specific histology could not be determined by the pathologists (specimen [id number] from [facility]). Following a review of treatment options, the patient began temsirolimus once-weekly therapy. As of today, he will have completed seven doses of temsirolimus. The patient continues to undertake most activities of daily living and has a Karnofsky performance status estimated at 80% limited by chronic exertional dyspnea and the cumbersome supplemental oxygen supply which he has carried for a number of years. He has had no recent fevers or chills or sweats and no recent hemoptysis. ALLERGIES: The patient has no known medication allergies CURRENT MEDICATIONS: amlodipine 10 mg p.o. q. day, atorvastatin 40 mg p.o. q. day, hydralazine 10 mg p.o. t.i.d., metoprolol 50 mg p.o. b.i.d., enteric-coated aspirin 325 mg p.o. q. day, cyclobenzaprine 10 mg p.o. q. day, Flovent HFA 45 mcg inhaler q.i.d., insulin degludec on sliding scale, trazodone 50 mg p.o. q.p.m. p.r.n., Incruse Ellipta 62.5 mcg inhaler daily. PAST MEDICAL HISTORY, SOCIAL HISTORY, AND FAMILY HISTORY: The patient's past medical, social, and family history are as per outpatient oncology notes of August 07, 2019. REVIEW OF SYSTEMS: A complete review of systems was obtained and was significant only for chronic low back pain, as well as mild chronic joint pain in the knees and ankles. The patient has chronic exertional dyspnea due to emphysema for which he carries oxygen and a concentrator. Of note, cough with chest pain previously noted has resolved. The review of systems was otherwise negative. PHYSICAL EXAMINATION: The patient is well-developed, well-nourished gentleman, awake, alert, and oriented, friendly and cooperative, in no distress with supplemental oxygen in place. Temperature 97.8, pulse 100, respirations 24, blood pressure 130/64, oxygen saturation 91% on 3 liters by nasal cannula. Skin: Full turgor, anicteric, and without lesions. HEENT examination: Normocephalic, atraumatic. Pupils equal round, reactive to light and accommodate. Extraocular muscles intact. Sclerae anicteric. Oropharynx without lesions. Neck: Supple without thyromegaly. Lymphatics: No pathologic lymphadenopathy noted. Lungs: Dry rales bilaterally without wheezing but with prolonged expiratory phase. Cardiac examination: Regular rhythm. Point of maximal impulse nondisplaced. S1, S2, without gallop, rub, or murmur noted. Abdomen: Obese. Active bowel sounds, soft, nontender without appreciable organomegaly. Rectal examination: Deferred. Extremities: Without cyanosis, but there is mild clubbing and trace edema. Neurological examination: Mental status intact. Cranial nerves intact. Motor and sensory fully intact. DIAGNOSTIC DATA: Laboratory studies dated October 06, 2019, include the following: White blood count 5100 per mcL, hemoglobin 12.5 g/dL, hematocrit 39.4%, platelet count 148,000. BUN 15, creatinine 1.32 mg/dL, glucose 259 mg/dL, total bilirubin 0.4 mg/dL, alkaline phosphatase 159, albumin 3.3. CT scan of the chest September 25, 2019, reports essentially complete opacification of the right upper lobe, similar to prior examination, highly suspicious right renal mass with 3.6 cm metastatic mass posterior to the left kidney. Subpleural nodules are identified along the periphery of the right middle lobe which have increased from prior examination, now measuring up to 2.5 x 1 cm. IMPRESSION: Renal cell carcinoma, metastatic. The patient has stage IV renal cell carcinoma metastatic to lung and retroperitoneum. He is tolerating TORISEL well thus far without evident toxicities. Clinically, the patient has improved, although CT scanning obtained September 25, 2019, showed modest progression of disease. However, the medical literature indicates that responses to temsirolimus may take 4-6 months to be evident; and, therefore, therapy will be continued as long as the patient does not deteriorate clinically. This was discussed with the patient, and he concurred with this plan. PLAN: Mr. Swift will continue temsirolimus infusions weekly and will return for physician reevaluation in 2 weeks or sooner if the need arises. It is anticipated that repeat imaging will be planned for some time in October 2019 or sooner if the need arises. Electronically Signed by Matthew Newman MD 10/10/2019 02:25 P DD: Matthew Newman MD 10/06/2019 03:25 P DT: aml 10/09/2019 11:03 A CC:
[2019-10-13 09:23] VITALS: BP 129/69
[2019-10-13 09:41] LABS: BASO % 0.5 % (0.0-1.0); EOS # 0.2 10^3/uL (0.0-0.5); EOS % 1.9 % (0.0-3.0); HEMATOCRIT 40.3 % (42.0-52.0); HEMOGLOBIN 12.9 g/dl (13.5-17.5); LYMPH # 1.2 10^3/uL (1.5-5.0); MEAN CORPUSCULAR VOLUME 81.3 fl (80.0-96.0); MONO # 0.7 10^3/uL (0.0-0.8); MONO % 7.9 % (0.0-5.0); NEUTROPHILS # 6.5 10^3/uL (1.5-8.5); NEUTROPHILS % 75.4 % (36.0-66.0); PLATELET COUNT, AUTOMATED 230 10^3/uL (150-450); RED BLOOD COUNT 4.96 10^6/uL (4.30-6.10); WHITE BLOOD COUNT 8.6 10^3/uL (4.0-10.0)
[2019-10-13 10:00] LABS: ALBUMIN 3.3 GM/DL (3.2-5.2); BILIRUBIN,TOTAL 0.5 MG/DL (0.2-1.0); CALCIUM LEVEL 8.8 MG/DL (8.8-10.2); CREATININE FOR GFR 1.33 MG/DL (0.70-1.30); GLOMERULAR FILTRATION RATE 56.3 (>42); POTASSIUM SERUM 3.4 MEQ/L (3.5-5.1); TOTAL PROTEIN 7.5 GM/DL (6.4-8.2)
--- NOTE | 2019-10-13 11:51 | ONC.PHACK ---
CHEMO ADMIN CHECKLIST Order Contains Pt ID: Name, Order on Chemo Order Form?: Yes Order Form Includes ALL: Correct Tx Day, Correct Date, Correct Cycle Number Pt ID on Order form Matches: Pt ID on PHA Label Med on Chemo OrderForm Matches: PHA Label, Med Used for Preparation [facility] Oct 13, 2019 11:51
[2019-10-20 09:48] VITALS: BP 118/66
[2019-10-20 09:57] LABS: BASO % 0.4 % (0.0-1.0); EOS # 0.1 10^3/uL (0.0-0.5); EOS % 1.4 % (0.0-3.0); HEMATOCRIT 35.9 % (42.0-52.0); HEMOGLOBIN 11.8 g/dl (13.5-17.5); LYMPH # 1.4 10^3/uL (1.5-5.0); LYMPH % 18.2 % (24.0-44.0); MEAN CORPUSCULAR HEMOGLOBIN 26.3 pg (27.0-33.0); MEAN CORPUSCULAR HGB CONC 32.9 g/dl (32.0-36.5); MONO # 0.7 10^3/uL (0.0-0.8); MONO % 9.6 % (0.0-5.0); NEUTROPHILS # 5.4 10^3/uL (1.5-8.5); NEUTROPHILS % 70.1 % (36.0-66.0); PLATELET COUNT, AUTOMATED 207 10^3/uL (150-450); RED BLOOD COUNT 4.49 10^6/uL (4.30-6.10); WHITE BLOOD COUNT 7.7 10^3/uL (4.0-10.0)
[2019-10-20 10:23] LABS: ALBUMIN 3.3 GM/DL (3.2-5.2); BILIRUBIN,TOTAL 0.4 MG/DL (0.2-1.0); CREATININE FOR GFR 1.29 MG/DL (0.70-1.30); GLOMERULAR FILTRATION RATE 58.3 (>42); POTASSIUM SERUM 3.7 MEQ/L (3.5-5.1); TOTAL PROTEIN 7.6 GM/DL (6.4-8.2)
--- NOTE | 2019-10-20 11:32 | ONC.PHACK ---
CHEMO ADMIN CHECKLIST Order Contains Pt ID: Name, Order on Chemo Order Form?: Yes Order Form Includes ALL: Correct Tx Day, Correct Date, Correct Cycle Number Pt ID on Order form Matches: Pt ID on PHA Label Med on Chemo OrderForm Matches: PHA Label, Med Used for Preparation [facility] Oct 20, 2019 11:32
--- NOTE | 2019-10-23 10:08 | MEDONC ---
MEDICAL ONCOLOGY OFFICE NOTE DATE OF SERVICE: 10/20/2019 IDENTIFICATION AND CHIEF COMPLAINT: Alex Swift is a very pleasant 74-year-old gentleman with stage IV renal cell carcinoma who returns for reevaluation, reporting "I am feeling alright. There is really nothing new." HISTORY OF PRESENT ILLNESS: Alex Swift is a 74-year-old gentleman who was in his usual fair state of health until April 2019, when he developed cough accompanied by myalgias and chest pain. He presented to the emergency department at [facility] where imaging studies demonstrated what was initially felt to be a pneumonia and he was prescribed antibiotics. However, in May 2019, he sustained trauma to the right shoulder with significant pain and return to the emergency department. At that time, imaging studies included CT scan that showed a mass lesion in his chest with extensive metastatic disease in the right upper lobe of the lung, as well as a right renal mass and retroperitoneal lymphadenopathy. CT-guided biopsy obtained July 11, 2019 documented renal cell carcinoma. The specific histology could not be determined by the pathologists (specimen [id number] from [facility]). Following a review of treatment options, the patient began temsirolimus once weekly therapy. He has now completed nine doses of the drug. He continues to undertake most activities of daily living, and has a Karnofsky performance status estimated 80% limited by chronic exertional dyspnea along with the cumbersome supplemental oxygen supply, which he has carried for a number of years. He has had no recent fevers, chills or sweats, although he does report mild sinus congestion over the last 3 days. ALLERGIES: The patient has no known medication allergies. CURRENT MEDICATIONS: - amlodipine 10 mg p.o. q. Day - atorvastatin 40 mg p.o. q. Day - hydralazine 10 mg p.o. t.i.d. - metoprolol 50 mg p.o. b.i.d. - enteric-coated aspirin 325 mg p.o. q. Day - cyclobenzaprine 10 mg p.o. daily - Flovent HFA 45 mcg inhaler q.i.d. - insulin sliding scale - trazodone 50 mg p.o. q.p.m. p.r.n. - Incruse Ellipta 62.5 mcg inhaler daily PAST MEDICAL HISTORY, SOCIAL HISTORY AND FAMILY HISTORY: The patient's past medical, social and family history are as per outpatient oncology notes of August 07, 2019. REVIEW OF SYSTEMS: A complete review of systems was obtained and was significant only for chronic low back pain, chronic mild joint pain in the knees and ankles, and chronic exertional dyspnea, for which he carries oxygen. As noted previously, cough that was present with chest pain in 2018 has resolved. The patient reports mild sinus congestion but review of systems is otherwise negative. PHYSICAL EXAMINATION: The patient is a well-developed, well-nourished gentleman awake, alert, fully oriented, friendly, cooperative and in no distress with supplemental oxygen in place. Temperature 98.1, pulse 93, respirations 18, oxygen saturation 91% on 3 liters by nasal cannula. Skin: Full turgor, anicteric without open lesions. HEENT: Normocephalic, atraumatic. Pupils equal, round, reactive to light and accommodate, extraocular muscles intact. Sclerae anicteric. Oropharynx without lesions. Sinuses nontender. Neck: Supple without thyromegaly. Lymphatics: No pathologic lymphadenopathy noted. Lungs: Dry rales bilaterally without wheezing but with prolonged expiratory phase. Cardiac: Regular rhythm. Point of maximal impulse nondisplaced. S1, S2, without gallop, rub or murmur noted. Abdomen: Obese. Active bowel sounds. Soft, nontender without appreciable organomegaly. Rectal: Examination deferred. Extremities: Without cyanosis but there is mild clubbing and trace edema. Neurologic: Mental status intact. Cranial nerves intact. Motor and sensory grossly intact. LABORATORY DATA: Laboratory studies dated October 20, 2019 include the following: White blood count 7700 per microliter, hemoglobin 11.8 g/dL, hematocrit 35.9%. platelet count 207,000, BUN 17, creatinine 1.29 mg/dL, glucose 227 mg/dL, calcium 9 mg/dL, alkaline phosphatase 130, albumin 3.3 g/dL. CT of the chest previously noted from September 08, 2019 reported subpleural nodules along the right middle lobe, minimally increased in size as compared to study of June 03, 2019. MRI dated September 08, 2019 reported "some metastatic sites are a little larger." IMPRESSION: Renal cell carcinoma. The patient has metastatic kidney cancer of histology indeterminate per pathology report. He is therefore receiving temsirolimus. Clinically, the patient has improved but radiographically, as of repeat imaging studies from September 08, 2019, the patient has had slight progression, although not sufficient to reach criteria for formal progression of disease. The medical literature indicates that patient's may require up to 4-5 months of temsirolimus therapy before an overt response is seen. Therefore, given that the patient is clinically stable, he will continue temsirolimus at this time. PLAN: Mr. Swift will receive temsirolimus and will continue to do so weekly barring toxicities in the next month. He will return for physician reevaluation in 3-4 weeks. It is anticipated that restaging imaging studies will be obtained at some point in October 2019. Electronically Signed by Matthew Newman MD 10/24/2019 07:59 A DD: Matthew Newman MD 10/20/2019 02:24 P DT: [email or web address] 10/23/2019 09:39 A CC:
[2019-10-27 09:30] VITALS: BP 127/65
[2019-10-27 09:41] LABS: BASO % 0.4 % (0.0-1.0); EOS % 0.6 % (0.0-3.0); LYMPH # 0.7 10^3/uL (1.5-5.0); LYMPH % 10.2 % (24.0-44.0); MEAN CORPUSCULAR HGB CONC 32.4 g/dl (32.0-36.5); MEAN CORPUSCULAR VOLUME 80.4 fl (80.0-96.0); MONO # 0.7 10^3/uL (0.0-0.8); MONO % 9.8 % (0.0-5.0); NEUTROPHILS # 5.7 10^3/uL (1.5-8.5); NEUTROPHILS % 78.6 % (36.0-66.0); PLATELET COUNT, AUTOMATED 200 10^3/uL (150-450); RED BLOOD COUNT 4.23 10^6/uL (4.30-6.10); WHITE BLOOD COUNT 7.3 10^3/uL (4.0-10.0)
[2019-10-27 10:08] LABS: ALBUMIN 2.9 GM/DL (3.2-5.2); BILIRUBIN,TOTAL 0.5 MG/DL (0.2-1.0); CALCIUM LEVEL 8.4 MG/DL (8.8-10.2); CREATININE FOR GFR 1.33 MG/DL (0.70-1.30); GLOMERULAR FILTRATION RATE 56.3 (>42); POTASSIUM SERUM 3.3 MEQ/L (3.5-5.1); TOTAL PROTEIN 7.2 GM/DL (6.4-8.2)
--- NOTE | 2019-10-27 10:52 | ONC.PHACK ---
CHEMO ADMIN CHECKLIST Order Contains Pt ID: Name, Order on Chemo Order Form?: Yes Order Form Includes ALL: Correct Tx Day, Correct Date, Correct Cycle Number Pt ID on Order form Matches: Pt ID on PHA Label Med on Chemo OrderForm Matches: PHA Label, Med Used for Preparation [facility] Oct 27, 2019 10:52
[~2019-11-03] VITALS: Ht 168.9 cm; Wt 104.1 kg
[~2019-11-03 09:30] MED LIST changes: +HUMA100I5 SC; -HUMA100I5 SQ; +IBUP1TAB6 PO; +INCR1INH INH; -ISOVUE-370 76% 100ML VIAL (Q9967) As Ordered ONE; +LORazepam 0.5 MG TAB PO ONE; +NORC1TAB7 PO; +NS IV ONE; +SODIUM CHLORIDE 0.9% INJ 10 ML SYR IV PRN; +TRES1INJ SC; +[UNRECOGNIZED DRUG - OTHER] IV ONE; +diphenhydrAMINE 50 MG PO PO ONE; +oxyCODONE 5MG TAB PO ONE
[2019-11-03 09:56] VITALS: BP 120/65
[2019-11-03 10:07] LABS: BASO % 0.3 % (0.0-1.0); EOS % 0.1 % (0.0-3.0); HEMATOCRIT 33.5 % (42.0-52.0); HEMOGLOBIN 10.6 g/dl (13.5-17.5); LYMPH # 1.1 10^3/uL (1.5-5.0); MEAN CORPUSCULAR HEMOGLOBIN 25.4 pg (27.0-33.0); MEAN CORPUSCULAR HGB CONC 31.6 g/dl (32.0-36.5); MEAN CORPUSCULAR VOLUME 80.3 fl (80.0-96.0); MONO # 0.9 10^3/uL (0.0-0.8); MONO % 8.2 % (0.0-5.0); NEUTROPHILS # 8.5 10^3/uL (1.5-8.5); NEUTROPHILS % 80.9 % (36.0-66.0); PLATELET COUNT, AUTOMATED 276 10^3/uL (150-450); RED BLOOD COUNT 4.17 10^6/uL (4.30-6.10); WHITE BLOOD COUNT 10.5 10^3/uL (4.0-10.0)
[2019-11-03 10:29] LABS: ALBUMIN 2.9 GM/DL (3.2-5.2); BILIRUBIN,TOTAL 0.5 MG/DL (0.2-1.0); CALCIUM LEVEL 8.2 MG/DL (8.8-10.2); CREATININE FOR GFR 1.49 MG/DL (0.70-1.30); GLOMERULAR FILTRATION RATE 49.4 (>42); POTASSIUM SERUM 3.5 MEQ/L (3.5-5.1); TOTAL PROTEIN 7.2 GM/DL (6.4-8.2)
--- NOTE | 2019-11-03 10:43 | ONC.PHACK ---
CHEMO ADMIN CHECKLIST Order Contains Pt ID: Name, Order on Chemo Order Form?: Yes Order Form Includes ALL: Correct Tx Day, Correct Date, Correct Cycle Number Pt ID on Order form Matches: Pt ID on PHA Label Med on Chemo OrderForm Matches: PHA Label, Med Used for Preparation [facility] Nov 03, 2019 10:43
--- NOTE | 2019-11-03 15:30 | MEDONC ---
MEDICAL ONCOLOGY OFFICE NOTE DATE OF ENCOUNTER AND DICTATION: 11/03/2019 IDENTIFICATION AND CHIEF COMPLAINT: Alex Swift is a very pleasant 74-year-old gentleman with stage IV renal cell carcinoma, who returns for reevaluation reporting "I guess I am feeling better now than I did a couple months ago. My wants us to moved to [place] about a month from now". HISTORY OF PRESENT ILLNESS: Alex Swift is a 74-year-old gentleman who was in his usual fair state of health until April 2019, when he developed cough accompanied by myalgias and chest pain. He presented to the emergency department at [facility], where imaging studies demonstrated what was initially felt to be a pneumonia, and he was prescribed antibiotics. However, in May 2019, he sustained trauma to the right shoulder with significant pain, and returned to the emergency department. At that time, imaging studies included CT scan that showed a mass lesion in his chest with extensive metastatic disease in the right upper lobe of the lung, as well as a right renal mass and retroperitoneal lymphadenopathy. CT-guided biopsy obtained July 11, 2019 documented renal cell carcinoma. The specific histologic subtype could not be determined (specimen [id number] from [facility]). Following a review of treatment options, the patient began temsirolimus once weekly. He has now completed approximately 10 doses of the drug. He continues to undertake most activities of daily living, and has a Karnofsky performance status estimated at 80%, limited by chronic exertional dyspnea, due to emphysema, as well as the cumbersome supplemental oxygen supply which he has carried for a number of years. Over the past 2 weeks he has had an upper respiratory infection which he states has now cleared. He has had no recent documented fevers, chills or sweats. Cough is productive of clear sputum. ALLERGIES: The patient has no known medication allergies. CURRENT MEDICATIONS: - amlodipine 10 mg by mouth every day - atorvastatin 40 mg by mouth every day - hydralazine 10 mg by mouth three times a day - metoprolol 50 mg by mouth twice a day - enteric-coated aspirin 325 mg by mouth every day - cyclobenzaprine 10 mg by mouth every day - Flovent HFA 45 mcg inhaler four times a day - insulin on sliding scale - trazodone 50 mg by mouth every evening as needed - Incruse Ellipta 62.5 mcg inhaler daily - supplemental oxygen by nasal cannula PAST MEDICAL HISTORY, SOCIAL HISTORY AND FAMILY HISTORY: The patient has past medical, social and family history are as documented in outpatient oncology notes of August 07, 2019. REVIEW OF SYSTEMS: A complete review of systems was obtained and was significant only for chronic low back pain, chronic mild joint pain in the knees and ankles and chronic exertional dyspnea for which she carries oxygen. As noted previously, cough that was present with chest pain in 2018 has recurred but is dramatically less severe than previously. Mild sinus congestion present at his last encounter has also resolved. PHYSICAL EXAMINATION: The patient is a well-developed, well-nourished gentleman awake, alert and fully oriented, friendly and cooperative, in no acute distress. Temperature 98.8, pulse 97, respirations 20, blood pressure 120/55, oxygen saturation 92% on 3 liters by nasal cannula. Skin: Full turgor, anicteric, and without open wounds. HEENT examination: Normocephalic, atraumatic. Pupils equal round, reactive to light and accommodate, extraocular muscles intact. Sclerae anicteric. Oropharynx without lesions. Sinuses nontender. Neck: Supple without thyromegaly. Lymphatics: No pathologic lymphadenopathy noted in the cervical, supraclavicular, axillary nor inguinal regions. Lungs: Dry rales bilaterally without wheezing but with prolonged expiratory phase. Cardiac exam: Regular rhythm. Point of maximal impulse nondisplaced. S1, S2, without gallop or murmur. Abdomen: Obese. Active bowel sounds, soft, nontender without appreciable organomegaly. Rectal examination: Deferred. Extremities: Without cyanosis but there is clubbing and trace edema. Neurologic examination: Mental status intact. Cranial nerves intact. Motor and sensory fully intact. LABORATORY DATA: Laboratory studies dated November 03, 2019 include white blood count 10,500 per microliter, hemoglobin 10.6 gram per deciliter, hematocrit 33.5%, platelet count 276,000. Serum chemistries are pending at this time. Most recent BUN from October 27, 2019 12 mg per deciliter with creatinine at that time 1.33 mg per deciliter. IMPRESSION: Renal cell carcinoma, histologic subtype indeterminate per pathology report. The patient is receiving single-agent temsirolimus intravenously weekly. Symptomatically the patient states he is improved, but radiographically, as of repeat imaging studies from September 08, 2019, the patient has had slight progression although not sufficient to reach criteria for formal characterization as progression of disease and failure of therapy. As noted previously, the medical literature indicates that it may require up to 4-5 months of temsirolimus therapy before an overt response is seen. Consequently, given that the patient is clinically stable, he will continue single-agent temsirolimus at this time. PLAN: Mr. Swift will receive temsirolimus and will continue do to so weekly barring toxicities or significant progression of disease. He will return for physician reevaluation in 3 weeks or sooner if the need arises. It is anticipated that restaging studies will be undertaken by CT in late October 2019. Electronically Signed by Matthew Newman MD 11/09/2019 09:41 A DD: Matthew Newman MD 11/03/2019 10:23 A DT: gato 11/03/2019 03:10 P CC:
== END | disposition home or self-care (01) ==
LOC: M ONCM 08-04 12:08
PROVIDERS: ATTEND Internal Medicine Hematology
DX: C64.9 Malignant neoplasm of unspecified kidney, except renal pelvis (principal); I12.9 Hypertensive chronic kidney disease with stage 1 through stage 4 chronic kidney disease, or unspecified chronic kidney disease; E11.51 Type 2 diabetes mellitus with diabetic peripheral angiopathy without gangrene; I25.10 Atherosclerotic heart disease of native coronary artery without angina pectoris; Z95.5 Presence of coronary angioplasty implant and graft; N18.3 Chronic kidney disease, stage 3 (moderate); J43.9 Emphysema, unspecified; R60.0 Localized edema; F17.290 Nicotine dependence, other tobacco product, uncomplicated; Z79.82 Long term (current) use of aspirin; Z79.899 Other long term (current) drug therapy
CPT/HCPCS: 36415; 36591; 80053; 81001; 82378; 83615; 84439; 84443; 85027; 85610; 85730; 96413; G0463; J1642; J9330

== ENCOUNTER 2019-11-06 23:42 | Inpatient (IN) | payer MEDICARE ==
[~2019-11-06] VITALS: Ht 177.8 cm; Wt 103.1 kg
[~2019-11-06 23:42] MED LIST changes: -IBUP1TAB6 PO; -INCR1INH INH; -LORazepam 0.5 MG TAB PO ONE; -NORC1TAB7 PO; -NS IV ONE; -SODIUM CHLORIDE 0.9% INJ 10 ML SYR IV PRN; -TRES1INJ SC; -[UNRECOGNIZED DRUG - OTHER] IV ONE; -diphenhydrAMINE 50 MG PO PO ONE; -oxyCODONE 5MG TAB PO ONE
[2019-11-07] VITALS (20 sets, daily range): BP systolic 109–151; BP diastolic 53–89; O2SAT 85–91
[2019-11-07 00:26] LABS: BASO % 0.3 % (0.0-1.0); HEMATOCRIT 30.1 % (42.0-52.0); HEMOGLOBIN 9.9 g/dl (13.5-17.5); LYMPH # 0.5 10^3/uL (1.5-5.0); LYMPH % 6.2 % (24.0-44.0); MEAN CORPUSCULAR HEMOGLOBIN 25.6 pg (27.0-33.0); MEAN CORPUSCULAR HGB CONC 32.9 g/dl (32.0-36.5); MEAN CORPUSCULAR VOLUME 77.8 fl (80.0-96.0); MONO # 0.5 10^3/uL (0.0-0.8); MONO % 6.2 % (0.0-5.0); NEUTROPHILS # 6.3 10^3/uL (1.5-8.5); NEUTROPHILS % 86.7 % (36.0-66.0); PLATELET COUNT, AUTOMATED 280 10^3/uL (150-450); RED BLOOD COUNT 3.87 10^6/uL (4.30-6.10); WHITE BLOOD COUNT 7.3 10^3/uL (4.0-10.0)
[2019-11-07] MEDS ORDERED: AZITHROMYCIN INJ 500 MG, VIAL MATE ADAPTER 1 EACH in D5W 250 ML IV ONE (00:45)
[2019-11-07] MEDS ORDERED: cefTRIAXone SOD 1 GM in D5W MINI-BAG PLUS 50 ML IV ONE (00:45)
[2019-11-07 00:47] LABS: CALCIUM LEVEL 8.2 MG/DL (8.8-10.2); CREATININE FOR GFR 1.39 MG/DL (0.70-1.30); GLOMERULAR FILTRATION RATE 53.5 (>42); POTASSIUM SERUM 3.8 MEQ/L (3.5-5.1)
--- NOTE | 2019-11-07 01:21 | HPEPDOC ---
[facility] Medical History & Physical Date of Admission Nov 07, 2019 Date of Service: Nov 07, 2019 Primary Care Physician: Meredith Rasheed Attending Physician: Thomas Kim MD History and Physical TIME OF SERVICE: 2:35 AM CHIEF COMPLAINT: Fever HISTORY OF PRESENT ILLNESS: This is a 74-year-old male who came to the hospital at the prodding of his and daughter because she had a fever as high as 102 at home associated with a cough productive of white sputum and poor appetite. He has renal cell cancer with metastases to the lungs and has been feeling chronically short of breath for 3 months. Today his shortness of breath is not worse compared to his baseline. He denies having a runny nose, sore throat, or chest pain today. He last had chemotherapy on Wednesday. He has has some dental caries and plans to see his dentist soon. REVIEW OF SYSTEMS: 12 point review of systems negative except as listed in HPI PAST MEDICAL/ SURGICAL HISTORY: COPD secondary to tobacco abuse Stage IV Renal cell carcinoma with metastases to the lung ( on temsirolimus) Chronic oxygen-dependent respiratory failure. Chronic CAD/VA in 2012, status post stenting with subsequent triple-vessel bypass IDDM Chronic HTN PVD w chronic lower extremity edema CKD 3 Debility/unsteady gait for unclear reasons he uses a cane and/or walker SOCIAL HISTORY: He quit smoking tobacco products, but still enjoys cigars occasionally Lives with his FAMILY HISTORY: DM HTN CAD He denies a family history of renal disease or renal cancer ALLERGIES: Please see below. HOME MEDICATIONS: Please see below. PHYSICAL EXAMINATION: VITAL SIGNS: Please see below. GEN: well nourished / well developed/ NAD INTEGUMENT: he doesn't have facial plethora HEENT:NCAT / lips are not cyanotic / NC in place / mucus membranes moist and pink CVS: RRR/ radial pulses intact LUNGS: He is able to speak full sentences without stopping to take a breath / he is occasionally coughing /he is not using accessory muscles / lungs are dull on percussion at the left mid to lower back/ he has expiratory MSK/EXTREMITIES: range of motion intact in all 4 extremities / no kyphosis NEURO: CN 2-12 are grossly intact / speech is not dysarthric PSYCH: alert and oriented to person place and time/ able to understand and follow all commands LABORATORY DATA: See below. IMAGING: Chest x-ray: He appears to have left-sided pneumonia, but the final report is pending MICROBIOLOGY: Please see below. ASSESSMENT: Mr. Swift is a 74-year-old male with a past medical history of metastatic renal cell cancer. CAD status post CABG IDDM, HTN and COPD, who is admitted for management of left-sided CAP. PLAN: 1.Left Sided CAP The only SIRS criteria he has here is tachycardia, but he likely immunosuppressed bc of his malignancy and recent chemo tx PORT/PSI Score to predict risk of mortality in pt w CAP = 102 points = calss IV risk = moderate risk = in patient admission is warranted Plan: admit to PCU / aspiration precautions/elevate head of bed continuous pulse ox & supplemental O2/ f/u sputum culture, strep pneumo, and legionella & blood culture/ continue with ceftriaxone and azithromycin/ IVF / tessalon pearls / Acetaminophen PRN for fever 3. COPD secondary to tobacco abuse (the patient denies having worsening dyspnea today) - Plan: c/w Flovent and Incruse Ellipta 4. Stage IV Renal cell carcinoma with metastases to the lung - Plan: f/u Onc as scheduled 5. Chronic oxygen-dependent respiratory failure - Plan: c/w supplemental O2 / PFS consult for assistance with battery for portable O2 machine 6. Microcytic anemia (Hemoglobin is slightly below his baseline today) - Plan: Follow-up iron panel 7. Chronic CAD - Plan: c/w ASA, atorvastatin & metoprolol 8. IDDM (A1C 8.7% in December 2018) - Plan: diabetic diet / f/u accuchecks & A1C / hypoglycemia protocol / sliding scale insulin / determir 80 units QHS (he is in Tresiba 80 units QHS at home but we don't have this med on our formulary) 9. Chronic HTN - Plan: amlodipine, metoprolol & hydralazine 10. CKD 3 - Plan: f/u BMP 11. PVD w chronic lower extremity edema - Plan: elevate legs 12. Debility/unsteady gait - Plan: fall precautions has cane and walker 13. Tobacco Abuse - Plan: smoking cessation eduction DVT PROPHYLAXIS: Heparin DISPOSITION: home after more than 2 midnights' stay / PFS consult has been placed LATE ENTRY Per d/w ER staff the patient admitted to that he had SI #Depression - Plan: start mirtazapine, sitter, will ask the day time team to consult Psych Vital Signs Vital Signs Date Time Temp Pulse Resp B/P (MAP) Pulse Ox O2 Delivery O2 Flow Rate FiO2 11/07/19 01:12 98 92 11/07/19 00:43 Nasal Cannula 3.0 11/07/19 00:21 11/06/19 23:50 97.2 18 Laboratory Data Labs 24H Laboratory Tests 2 11/07/19 00:08: Immature Granulocyte % (Auto) 0.6, Neutrophils (%) (Auto) 86.7H, Lymphocytes (%) (Auto) 6.2L, Monocytes (%) (Auto) 6.2H, Eosinophils (%) (Auto) 0.0, Basophils (%) (Auto) 0.3, Neutrophils # (Auto) 6.3, Lymphocytes # (Auto) 0.5L, Monocytes # (Auto) 0.5, Eosinophils # (Auto) 0.0, Basophils # (Auto) 0.0, Nucleated Red Blood Cells % (auto) 0.0, Anion Gap 11, Glomerular Filtration Rate 53.5, Calcium Level 8.2L CBC/BMP Laboratory Tests 11/07/19 00:08 Microbiology Microbiology 11/07/19 Blood Culture, Received Pending Home Medications Scheduled Amlodipine Besylate (Amlodipine Besylate) 10 Mg Tab, 10 MG PO DAILY Amoxicillin (Amoxicillin) 500 Mg Capsule, 500 MG PO Q12H Aspirin (Aspirin EC) 325 Mg Tabec, 325 MG PO DAILY Atorvastatin Calcium (Atorvastatin Calcium) 40 Mg Tab, 40 MG PO DAILY Hydralazine HCl (Hydralazine HCl) 10 Mg Tab, 10 MG PO TID Insulin Degludec (Tresiba Flextouch U-200) 200 Unit/1 Ml Insuln.pen, 80 UNIT SC QHS Insulin Lispro (Humalog Kwikpen U-100) 100 Unit/1 Ml Insuln.pen, 1 DOSE SC AC PER SLIDING SCALE Metoprolol Tartrate (Metoprolol Tartrate) 50 Mg Tab, 50 MG PO DAILY Metoprolol Tartrate (Metoprolol Tartrate) 50 Mg Tablet, 25 MG PO QHS Sumatriptan Succinate (Sumatriptan Succinate) 6 Mg/0.5 Ml Cartridge, 6 MG SC ONCE for migraine headache inject 6 mg subcutaneously once for headache; may repeat dose once 4 hours later Umeclidinium [place]idan (Incruse Ellipta) 62.5 Mcg Blst.w.dev, 1 PUFF INH DAILY Scheduled PRN Hydrocodone/Acetaminophen ([place] 5-325 Tablet) 1 Each Tablet, 1 TAB PO Q6H PRN for PAIN Ibuprofen (Ibuprofen) 600 Mg Tablet, 600 MG PO TID PRN for PAIN Trazodone HCl (Trazodone HCl) 50 Mg Tablet, 50 MG PO QHS PRN for SLEEP Allergies Coded Allergies: No Known Allergies (Unverified , 11/06/19) A-FIB/CHADSVASC A-FIB History Current/History of A-Fib/PAF?: No Current PO Anticoag Therapy: PERNELL Villalta MD Nov 07, 2019 01:21
[2019-11-07] MEDS: NS 1,000 ML IV SCH ×2 (01:45→06:24)
[2019-11-07] MEDS ORDERED: INCR1INH INH (03:20)
[2019-11-07] MEDS ORDERED: TRES1INJ SC (03:20)
[2019-11-07] MEDS ORDERED: METO50TA7 PO (03:20)
[2019-11-07] MEDS ORDERED: IBUP1TAB6 PO (03:20)
[2019-11-07] MEDS ORDERED: NORC1TAB7 PO (03:20)
[2019-11-07] MEDS ORDERED: AMOX500C PO (03:21)
[2019-11-07 03:55] LABS: VENOUS BASE EXCESS -1.2 (-2.0-2.0); VENOUS HCO3 22.8 MEQ/L (23.0-27.0); VENOUS O2 SATURATION 99.5 % (60.0-80.0); VENOUS PARTIAL PRESSURE CO2 35.2 mmHg (38.0-50.0); VENOUS PARTIAL PRESSURE O2 161.3 mmHg (30.0-50.0); VENOUS PH 7.429 UNITS (7.330-7.430); VENOUS STANDARD HCO3 23.5 MEQ/L; VENOUS TOTAL CO2 23.9 MEQ/L (24.0-28.0)
[2019-11-07] MEDS ORDERED: LEVEMIR (INSULIN DETEMIR) 1 UNITS/0.01ML SC ONE (04:30)
[2019-11-07] MEDS ORDERED: traZODone 50 MG TAB PO PRN (04:30)
[2019-11-07] MEDS ORDERED: GLUCAGON FOR INJ 1 MG VIAL (J1610) SC PRN (04:30)
[2019-11-07] MEDS ORDERED: GLUCOSE 4 GM CHEW TABLET PO PRN (04:30)
[2019-11-07] MEDS ORDERED: DEXTROSE 50% 50 ML SYRINGE IV PRN (04:30)
[2019-11-07 04:34] LABS: INFLUENZA A AMPLIFICATION NEGATIVE (NEGATIVE); INFLUENZA B AMPLIFICATION NEGATIVE (NEGATIVE)
[2019-11-07] MEDS ORDERED: MIRTAZAPINE 7.5MG PER 1/2 TABLET PO PRN (05:15)
[2019-11-07] MEDS ORDERED: BENZONATATE 100 MG CAP PO SCH (06:00)
[2019-11-07] MEDS: BENZONATATE 100 MG CAP PO PRN ×2 (06:39→16:57)
--- NOTE | 2019-11-07 06:43 | REPVR ---
PROCEDURE INFORMATION: Exam: CT Chest Without Contrast Exam date and time: 11/07/2019 5:19 AM Age: 74 years old Clinical indication: Cough; Patient HX: Renal CA with lung mets; Additional info: R/O post obstructive pna in PT w renal cell CA w mets 2 lung TECHNIQUE: Imaging protocol: Computed tomography of the chest without contrast. 3D rendering: MIP and/or 3D reconstructed images were created by the technologist. Radiation optimization: All CT scans at this facility use at least one of these dose optimization techniques: automated exposure control; mA and/or kV adjustment per patient size (includes targeted exams where dose is matched to clinical indication); or iterative reconstruction. COMPARISON: CT Chest without contrast 09/25/2019 4:07 PM FINDINGS: Lungs: Again seen is total opacification of the right upper lobe-lobar atelectasis. Underlying mass cannot be excluded. There is a focal consolidation/early developing consolidation in the right infrahilar region measuring 5.3 x 4.8 centimetres. Pleural space: The study is limited due to significant respiratory motion. Right lung pleural based nodules are seen however appear to be slightly less prominent than the prior exam. There is possibly trace right-sided pleural effusion. There is interval development of left lower lobe and lingular consolidation as well as left perihilar consolidation in addition to a 2.7 x 2.1 cm focal opacity in the left upper lobe. Heart: See Bones/joints Finding. Pulmonary arteries: The pulmonary trunk is dilated at 4.1 centimetres. Aorta: Unremarkable. No aortic aneurysm. Lymph nodes: There is no gross bulky mediastinal lymph nodes. Kidneys and ureters: Partially imaged most superior aspect of the right kidney demonstrate a mass. There is a 3.1 x 2.3 cm nodule in the retroperitoneum, partially imaged, posterior to the left kidney. Bones/joints: The patient is status post sternotomy with grossly intact sternal wires. There is severe coronary vascular calcifications. Soft tissues: Unremarkable. IMPRESSION: Limited study due to significant respiratory motion. 1. No change in right upper lobar atelectasis. Underlying mass cannot be excluded. 2. Right lung pleural based nodules appear to be slightly less prominent than the prior exam however this could be due to due to the limitation of the exam from significant respiratory motion. 3. Interval development left lower lobe, left perihilar and right infrahilar consolidations in addition to a left upper lobe opacity. Findings likely represent multifocal pneumonia however follow-up to resolution is recommended. 4. Interval development of trace right-sided pleural effusion possibly reactive to the pneumonic process. 5. Enlarged pulmonary trunk at 4.1 cm suggestive of an element of pulmonary hypertension. 6. Severe coronary vascular calcifications. 7. Partially imaged right upper renal pole mass. Partially imaged 3.1 x 2.3 cm left retroperitoneum mass. These remain grossly unchanged since the prior study. Electronically signed by: Cecilio La On 11/07/2019 06:42:01 AM
[2019-11-07 07:35] LABS: HEMOGLOBIN A1c 10.3 %
[2019-11-07 07:43] LABS: MAGNESIUM LEVEL 2.1 MG/DL (1.8-2.4); PERCENT SATURATION 4.6 % (19.7-50.0)
--- NOTE | 2019-11-07 07:50 | REP ---
Clinical: Cough and fever. Technique: PA and lateral. Comparison: 03/08/2019. Findings: [place] with tip in the SVC/right atrium. Evidence of prior sternotomy and CABG. Bibasilar opacities (left greater than right) consistent with pneumonia and/or effusion. Large opacity in the right upper lobe is also appreciated. No pneumothorax. Impression: Large right upper lobe opacity along with bibasilar air space disease and possible effusions. Electronically Signed by Scott Montanez MD 11/07/2019 07:42 A
[2019-11-07] MEDS: ASPIRIN ENTERIC 325 MG TAB PO SCH (08:19)
[2019-11-07] MEDS: METOPROLOL TART 50 MG TAB PO SCH ×2 (08:21→20:02)
[2019-11-07] MEDS: HEPARIN SOD (PORCINE) 5000 UNITS/ML VIAL (J1644 PER 1000UNITS) SC SCH ×2 (08:22→20:01)
[2019-11-07] MEDS: HumaLOG INSULIN (NovoLOG) PER UNIT SC SCH ×4 (08:23→20:10)
[2019-11-07] MEDS: ATORVASTATIN 20 MG TAB PO SCH (08:23)
[2019-11-07] MEDS: amLODIPine 10 MG TAB PO SCH (08:23)
[2019-11-07] MEDS: IBUPROFEN 600 MG TAB PO PRN ×2 (08:24→16:53)
[2019-11-07] MEDS: **hydrALAZINE** 10 MG TAB PO SCH ×3 (08:25→20:03)
[2019-11-07 08:42] LABS: FOLATE 15.2 NG/ML (>5.4)
[2019-11-07] MEDS ORDERED: INCRUSE ELIPTA INH SCH (09:00)
--- NOTE | 2019-11-07 09:34 | IPNPDOC ---
Subjective Date Seen The patient was seen on 11/07/19. Subjective Chief Complaint/HPI Pt this morning states that he is coughing with some sputum production, SOB worse with cough. Has had low grade temp. Generally not feeling well. He does tell me that he has a lot of home stress, lives with his , mejia senior, and 3 Autistic children, one of which has very significant behaviors. He states that his wants to go back to [place], but their family is all here. He states he has been considering suicide lately because of his home stress and the pain he has been in. 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 He tells me that he currently does have a plan for suicide, but won't reveal what this is with moderate pressure, he states that he last considered it just before coming into the hospital, he denies intention, states that he has seriously considered it a hand ful of times over the last several weeks but hasn't acted on his plan. General: Reports: Fatigue Constitutional: Reports: Fever ENT: Denies: Head Aches, Ear Pain Skin: Denies: Rash Pulmonary: Reports: Dyspnea, Cough Cardiovascular: Denies: Chest Pain Gastrointestinal: Denies: Nausea, Vomiting, Diarrhea, Constipation Musculoskeletal: Reports: Back Pain Neurological: Denies: Numbness Psych: Reports: Depression, Thoughts of Self Harm Objective Physical Examination General Exam: Positive: Alert, No Acute Distress ENT Exam: Positive: Mucous membr. moist/pink Neck Exam: Positive: Supple Chest Exam: Positive: Rhonchi (L base and R upper lobe, diminished throughout); Negative: Clear to auscultation, Normal air movement Heart Exam: Positive: Rate Normal, Normal S1, Normal S2 Abdomen Exam: Positive: Soft; Negative: Normal bowel sounds, Tenderness Extremity Exam: Negative: Edema Skin Exam: Negative: Rash Neuro Exam: Positive: Normal Speech Psych Exam: Negative: Mood NL Assessment /Plan Problems (1) Acute on chronic respiratory failure with hypoxemia Status: Acute Response to Treatment: Stable Discussed With: Nurse, Patient Problem Specific Plan: Monitor Clinically, Repeat Labs Problem Text: Resp status stable, on Venti Mask has been weaned this morning from 50% to 35%, he seems to be tolerating this well with sats 88-92% which I think it appropriate, nurse will cont to wean as tolerated. He is on Rocephin/Azithromycin, sputum culture pending (this was collected when I was in the room), blood cultures pending. Low grade temp reported this morning, not documented at this time. Consider adjusting abx to more broad spectrum if temp cont to occur. WBC normal at 7 (2) Community acquired pneumonia Status: Acute Response to Treatment: Stable Problem Specific Plan: Monitor Clinically Problem Text: See above. (3) Renal cell carcinoma Status: Chronic Problem Specific Plan: Monitor Clinically Problem Text: Pt will need to cont to follow with Onc as an outpt. (4) CAD (coronary artery disease) Status: Chronic Response to Treatment: Stable Problem Text: Cont with ASA, Lipitor, Lopressor. (5) DM2 (diabetes mellitus, type 2) Status: Chronic Response to Treatment: Stable, Uncontrolled Discussed With: Patient Problem Specific Plan: Monitor Clinically, Repeat Labs Problem Text: Not ideally controlled, on SSI/Levemir 80. (6) CKD (chronic kidney disease) stage 3, GFR 30-59 ml/min Status: Chronic Problem Specific Plan: Monitor Clinically Problem Text: Baseline scr 1.3-1.4, stable. (7) Anemia Status: Acute Response to Treatment: Worse Discussed With: Patient Problem Specific Plan: Monitor Clinically, Repeat Labs Problem Text: Hgb 9.9 this morning, had been normal 05/2019, steadily declining since then. This morning Fe 11, TIBC 237, % sat 4.6, B12 698, Folate 15.2, likely related to chronic disease Plan/VTE VTE Prophylaxis Ordered?: Yes VS, I&O, 24H, [facility] Vital Signs/I&O Vital Signs Date Time Temp Pulse Resp B/P (MAP) Pulse Ox O2 Delivery O2 Flow Rate FiO2 11/07/19 08:21 122 149/70 11/07/19 06:04 99.8 24 84 Venturi Mask 50 11/07/19 00:43 3.0 I&O- Last 24 Hours up to 6 AM 11/07/19 06:00 Intake Total 800 ml Balance 800 ml Laboratory Data 24H LABS Laboratory Tests 2 11/07/19 00:08: Immature Granulocyte % (Auto) 0.6, Neutrophils (%) (Auto) 86.7H, Lymphocytes (%) (Auto) 6.2L, Monocytes (%) (Auto) 6.2H, Eosinophils (%) (Auto) 0.0, Basophils (%) (Auto) 0.3, Neutrophils # (Auto) 6.3, Lymphocytes # (Auto) 0.5L, Monocytes # (Auto) 0.5, Eosinophils # (Auto) 0.0, Basophils # (Auto) 0.0, Nucleated Red Blood Cells % (auto) 0.0, Anion Gap 11, Glomerular Filtration Rate 53.5, Calcium Level 8.2L 11/07/19 03:35: Blood Gas Bicarbonate Standard 23.5, Venous Blood pH 7.429, Venous Blood Partial Pressure CO2 35.2L, Venous Blood Partial Pressure O2 161.3H, Venous Blood Total Carbon Dioxide 23.9L, Venous Blood HCO3 22.8L, Venous Blood Oxygen Saturation 99.5H, Venous Blood Base Excess -1.2, Methicillin-Resist S.aureus DNA PCR NOT DETECTED 11/07/19 03:36: Influenza Type A (RT-PCR) NEGATIVE, Influenza Type B (RT-PCR) NEGATIVE, Respiratory Syncytial Virus (RT-PCR NEGATIVE 11/07/19 06:22: 11/07/19 06:59: Estimated Mean Plasma Glucose 249H, Hemoglobin A1c 10.3, Magnesium Level 2.1, Iron Level 11L, Total Iron Binding Capacity 237L, Transferrin % Saturation 4.6L, Ferritin 360, Vitamin B12 Level 698, Folate 15.2 11/07/19 07:58: Bedside Glucose (Misc Panel) 223H CBC/BMP Laboratory Tests 11/07/19 00:08 Microbiology Microbiology 11/07/19 Respiratory Virus Panel (PCR) ([facility]) - Final, Complete 11/07/19 Blood Culture, Received Pending CLARE LLOYD PA-C Nov 07, 2019 09:34
[2019-11-07] MEDS: cefTRIAXone SOD 2 GM in D5W MINI-BAG PLUS 50 ML IV SCH (13:02)
[2019-11-07] MEDS: guaiFENesin ER 600 MG TAB PO SCH ×2 (13:03→20:01)
[2019-11-07 17:37] LABS: MAGNESIUM LEVEL 2.1 MG/DL (1.8-2.4); PERCENT SATURATION 4.5 % (19.7-50.0)
[2019-11-07] MEDS: LEVEMIR (INSULIN DETEMIR) 1 UNITS/0.01ML SC SCH (20:02)
[2019-11-07] MEDS ORDERED: LEVEMIR (INSULIN DETEMIR) 1 UNITS/0.01ML SC SCH (21:00)
[2019-11-08] VITALS (21 sets, daily range): BP systolic 97–154; BP diastolic 56–97; O2SAT 88–95
[2019-11-08] MEDS: LEVALBUTEROL 1.25 MG/0.5 ML CONCENTRATE NEB INH PRN (00:21)
[2019-11-08] MEDS: BENZONATATE 100 MG CAP PO PRN ×2 (00:24→11:00)
[2019-11-08] MEDS: guaiFENesin/CODEINE SYRUP 5 ML UDC PO PRN ×2 (00:24→06:02)
[2019-11-08] MEDS: AZITHROMYCIN INJ 500 MG, VIAL MATE ADAPTER 1 EACH in D5W 250 ML IV SCH (01:41)
[2019-11-08] MEDS ORDERED: cefTRIAXone SOD 1 GM in D5W MINI-BAG PLUS 50 ML IV SCH (04:00)
[2019-11-08 05:04] LABS: HEMATOCRIT 29.3 % (42.0-52.0); HEMOGLOBIN 9.1 g/dl (13.5-17.5); MEAN CORPUSCULAR HEMOGLOBIN 24.5 pg (27.0-33.0); MEAN CORPUSCULAR HGB CONC 31.1 g/dl (32.0-36.5); PLATELET COUNT, AUTOMATED 229 10^3/uL (150-450); RED BLOOD COUNT 3.71 10^6/uL (4.30-6.10); WHITE BLOOD COUNT 5.8 10^3/uL (4.0-10.0)
[2019-11-08 05:23] LABS: CALCIUM LEVEL 8.5 MG/DL (8.8-10.2); CREATININE FOR GFR 1.27 MG/DL (0.70-1.30); GLOMERULAR FILTRATION RATE 59.3 (>42); MAGNESIUM LEVEL 2.1 MG/DL (1.8-2.4); POTASSIUM SERUM 3.5 MEQ/L (3.5-5.1)
[2019-11-08] MEDS: NS 1,000 ML IV SCH (05:50)
[2019-11-08] MEDS: HumaLOG INSULIN (NovoLOG) PER UNIT SC SCH ×4 (07:43→20:21)
--- NOTE | 2019-11-08 08:02 | IPNPDOC ---
Subjective Date Seen The patient was seen on 11/08/19. Subjective Chief Complaint/HPI pneumonia Events since last encounter Improved symptoms with cough medicine, upright posture and high flow NC. Patient denies intent to harm himself while in the hospital. Admits to continuing SI without a plan. OOB eating breakfast this am. Constitutional: Denies: Chills, Fever, Night Sweats ENT: Denies: Head Aches, Ear Pain, Dysphagia Skin: Denies: Rash, Lesions, Breakdown Pulmonary: Reports: Dyspnea, Cough Cardiovascular: Denies: Chest Pain, Palpitations, Orthopnea, Paroxysmal Noc. Dyspnea, Lt Headedness Gastrointestinal: Denies: Nausea, Vomiting, Abdominal Pain, Diarrhea, Constipation Genitourinary: Denies: Dysuria, Frequency, Incontinence, Retention Psych: Reports: Mood Normal; Denies: Depression, Memory Issues Objective Physical Examination General Exam: Positive: Alert, No Acute Distress ENT Exam: Positive: Mucous membr. moist/pink Neck Exam: Positive: Supple Chest Exam: Positive: Rhonchi (L base); Negative: Clear to auscultation, Normal air movement Heart Exam: Positive: Rate Normal, Normal S1, Normal S2 Abdomen Exam: Positive: Soft; Negative: Normal bowel sounds, Tenderness Extremity Exam: Negative: Edema Skin Exam: Negative: Rash Neuro Exam: Positive: Normal Speech Psych Exam: Negative: Mood NL Assessment /Plan Problems (1) Acute on chronic respiratory failure with hypoxemia Status: Acute Response to Treatment: Stable Discussed With: Nurse, Patient Problem Specific Plan: Monitor Clinically, Repeat Labs Problem Text: 11/08/2019: Currently on high flow NC while eating. Continue to wean down on oxygen to keep sats 88-92%. Continue Rocephin and Azithromycin. Resp status stable, on Venti Mask has been weaned this morning from 50% to 35%, he seems to be tolerating this well with sats 88-92% which I think it appropriate, nurse will cont to wean as tolerated. He is on Rocephin/Azithromycin, sputum culture pending (this was collected when I was in the room), blood cultures pending. Low grade temp reported this morning, not documented at this time. Consider adjusting abx to more broad spectrum if temp cont to occur. WBC normal at 7 (2) Community acquired pneumonia Status: Acute Response to Treatment: Stable Problem Specific Plan: Monitor Clinically Problem Text: See above. (3) Renal cell carcinoma Status: Chronic Problem Specific Plan: Monitor Clinically Problem Text: Pt will need to cont to follow with Onc as an outpt. (4) CAD (coronary artery disease) Status: Chronic Response to Treatment: Stable Problem Text: Cont with ASA, Lipitor, Lopressor. (5) DM2 (diabetes mellitus, type 2) Status: Chronic Response to Treatment: Stable, Uncontrolled Discussed With: Patient Problem Specific Plan: Monitor Clinically, Repeat Labs Problem Text: Not ideally controlled, on SSI/Levemir 80. (6) CKD (chronic kidney disease) stage 3, GFR 30-59 ml/min Status: Chronic Problem Specific Plan: Monitor Clinically Problem Text: Baseline scr 1.3-1.4, stable. (7) Anemia Status: Acute Response to Treatment: Worse Discussed With: Patient Problem Specific Plan: Monitor Clinically, Repeat Labs Problem Text: Hgb 9.9 this morning, had been normal 05/2019, steadily declining since then. This morning Fe 11, TIBC 237, % sat 4.6, B12 698, Folate 15.2, likely related to chronic disease (8) Passive suicidal ideations Problem Text: sitter at bedside. denies plan. will need psych eval on DC Plan/VTE VTE Prophylaxis Ordered?: Yes VS, I&O, 24H, [facility] Vital Signs/I&O Vital Signs Date Time Temp Pulse Resp B/P (MAP) Pulse Ox O2 Delivery O2 Flow Rate FiO2 11/08/19 06:00 120 144/67 (92) 92 Venturi Mask 40 11/08/19 06:00 40.0 11/08/19 04:00 99.0 22 I&O- Last 24 Hours up to 6 AM 11/08/19 06:00 Intake Total 3225 ml Output Total 1225 ml Balance 2000 ml Laboratory Data 24H LABS Laboratory Tests 2 11/07/19 07:58: Bedside Glucose (Misc Panel) 223H 11/07/19 12:26: Bedside Glucose (Misc Panel) 277H 11/07/19 16:50: Bedside Glucose (Misc Panel) 286H 11/07/19 20:08: Bedside Glucose (Misc Panel) 250H 11/08/19 04:44: Nucleated Red Blood Cells % (auto) 0.0, Anion Gap 7L, Glomerular Filtration Rate 59.3, Calcium Level 8.5L, Magnesium Level 2.1 CBC/BMP Laboratory Tests 11/08/19 04:44 Microbiology Microbiology 11/07/19 Respiratory Virus Panel (PCR) ([facility]) - Final, Complete 11/07/19 Blood Culture - Preliminary, Resulted No growth after 24 hours . All specim... Gretel Landry GATE ATTENDANT Nov 08, 2019 08:02
[2019-11-08] MEDS: HEPARIN SOD (PORCINE) 5000 UNITS/ML VIAL (J1644 PER 1000UNITS) SC SCH ×2 (08:52→20:11)
[2019-11-08] MEDS: ASPIRIN ENTERIC 325 MG TAB PO SCH (08:53)
[2019-11-08] MEDS: METOPROLOL TART 50 MG TAB PO SCH ×2 (08:53→20:15)
[2019-11-08] MEDS: ATORVASTATIN 20 MG TAB PO SCH (08:53)
[2019-11-08] MEDS: guaiFENesin ER 600 MG TAB PO SCH ×2 (08:53→20:12)
[2019-11-08] MEDS: **hydrALAZINE** 10 MG TAB PO SCH ×3 (08:54→20:14)
[2019-11-08] MEDS: amLODIPine 10 MG TAB PO SCH (08:55)
[2019-11-08 10:31] LABS: FOLATE 16.8 NG/ML (>5.4)
[2019-11-08] MEDS: NORCO, ANEXSIA 5/325MG TABLET (HYDROcodone/ACETAMINOPHEN) PO PRN (10:35)
[2019-11-08] MEDS: TIOTROPIUM INHALER/CAPSULE (SPIRIVA) INH SCH (11:30)
[2019-11-08] MEDS: cefTRIAXone SOD 2 GM in D5W MINI-BAG PLUS 50 ML IV SCH (12:43)
[2019-11-08] MEDS ORDERED: SERTRALINE HCL 50 MG TAB PO ONE (13:00)
[2019-11-08] MEDS: LEVEMIR (INSULIN DETEMIR) 1 UNITS/0.01ML SC SCH (20:11)
[2019-11-08] MEDS: MIRTAZAPINE 15 MG TAB PO SCH (20:11)
[2019-11-09] VITALS (17 sets, daily range): BP systolic 120–153; BP diastolic 58–86; PULSE 112; O2SAT 84–92
[2019-11-09] MEDS: AZITHROMYCIN INJ 500 MG, VIAL MATE ADAPTER 1 EACH in D5W 250 ML IV SCH (01:35)
[2019-11-09] MEDS: BENZONATATE 100 MG CAP PO PRN ×3 (01:35→17:38)
[2019-11-09] MEDS: LEVALBUTEROL 1.25 MG/0.5 ML CONCENTRATE NEB INH PRN (03:09)
[2019-11-09] MEDS: guaiFENesin/CODEINE SYRUP 5 ML UDC PO PRN (06:05)
[2019-11-09] MEDS: TIOTROPIUM INHALER/CAPSULE (SPIRIVA) INH SCH (07:41)
[2019-11-09] MEDS: ASPIRIN ENTERIC 325 MG TAB PO SCH (08:09)
[2019-11-09] MEDS: amLODIPine 10 MG TAB PO SCH (08:10)
[2019-11-09] MEDS: METOPROLOL TART 50 MG TAB PO SCH ×2 (08:10→20:39)
[2019-11-09] MEDS: ATORVASTATIN 20 MG TAB PO SCH (08:10)
[2019-11-09] MEDS: **hydrALAZINE** 10 MG TAB PO SCH ×3 (08:10→20:39)
[2019-11-09] MEDS: guaiFENesin ER 600 MG TAB PO SCH ×2 (08:10→20:39)
[2019-11-09] MEDS: HEPARIN SOD (PORCINE) 5000 UNITS/ML VIAL (J1644 PER 1000UNITS) SC SCH ×2 (08:10→20:38)
[2019-11-09] MEDS: HumaLOG INSULIN (NovoLOG) PER UNIT SC SCH ×4 (08:11→20:41)
--- NOTE | 2019-11-09 08:49 | IPNPDOC ---
Subjective Date Seen The patient was seen on 11/09/19. Subjective Chief Complaint/HPI Pt this morning without new concerns. States he isn't really sure if he is feeling any better because he just woke up. He is unsure if he has been seen by Psych General: Reports: Fatigue Constitutional: Denies: Chills, Fever Pulmonary: Reports: Dyspnea, Cough Cardiovascular: Denies: Chest Pain, Palpitations Gastrointestinal: Denies: Nausea, Vomiting, Abdominal Pain, Diarrhea Neurological: Reports: Weakness Psych: Reports: Depression Objective Physical Examination General Exam: Positive: Alert, No Acute Distress ENT Exam: Positive: Mucous membr. moist/pink Neck Exam: Positive: Supple Chest Exam: Positive: Rhonchi (L base), Diminished; Negative: Clear to auscultation, Normal air movement Heart Exam: Positive: Rate Normal, Normal S1, Normal S2 Abdomen Exam: Positive: Soft; Negative: Normal bowel sounds, Tenderness Extremity Exam: Negative: Edema Skin Exam: Negative: Rash Neuro Exam: Positive: Normal Speech Psych Exam: Negative: Mood NL Assessment /Plan Problems (1) Acute on chronic respiratory failure with hypoxemia Status: Acute Response to Treatment: Stable Discussed With: Nurse, Patient Problem Specific Plan: Monitor Clinically, Repeat Labs Problem Text: 11/09 Rocephin/Azithromycin D3, Has been weaned from Venti to High flow and is now on NC, monitor. Cont with Nebs. 11/08/2019: Currently on high flow NC while eating. Continue to wean down on oxygen to keep sats 88-92%. Continue Rocephin and Azithromycin. Resp status stable, on Venti Mask has been weaned this morning from 50% to 35%, he seems to be tolerating this well with sats 88-92% which I think it appropri ate, nurse will cont to wean as tolerated. He is on Rocephin/Azithromycin, sputum culture pending (this was collected when I was in the room), blood cultures pending. Low grade temp reported this morning, not documented at this time. Consider adjusting abx to more broad spectrum if temp cont to occur. WBC normal at 7 (2) Community acquired pneumonia Status: Acute Response to Treatment: Stable Problem Specific Plan: Monitor Clinically Problem Text: See above. (3) Anemia Status: Acute Response to Treatment: Worse Discussed With: Patient Problem Specific Plan: Monitor Clinically, Repeat Labs Problem Text: 11/09 No labs available this morning, Hgb dropped frmo 9.9 to 9.1 yest, monitor. 11/07 Hgb 9.9 this morning, had been normal 05/2019, steadily declining since then. This morning Fe 11, TIBC 237, % sat 4.6, B12 698, Folate 15.2, likely related to chronic disease (4) Renal cell carcinoma Status: Chronic Problem Specific Plan: Monitor Clinically Problem Text: Pt will need to cont to follow with Onc as an outpt. (5) CAD (coronary artery disease) Status: Chronic Response to Treatment: Stable Problem Text: Cont with ASA, Lipitor, Lopressor. (6) DM2 (diabetes mellitus, type 2) Status: Chronic Response to Treatment: Stable, Uncontrolled Discussed With: Patient Problem Specific Plan: Monitor Clinically, Repeat Labs Problem Text: Not ideally controlled, on SSI/Levemir 80. (7) CKD (chronic kidney disease) stage 3, GFR 30-59 ml/min Status: Chronic Problem Specific Plan: Monitor Clinically Problem Text: Baseline scr 1.3-1.4, stable. (8) Passive suicidal ideations Problem Text: 11/[address] Harmon and placed a consult on 11/07, I do not see notes in the chart, pt is unsure if she has been in. 11/08 sitter at bedside. denies plan. will need psych eval on DC Plan/VTE VTE Prophylaxis Ordered?: Yes VS, I&O, 24H, Fishbone Vital Signs/I&O Vital Signs Date Time Temp Pulse Resp B/P (MAP) Pulse Ox O2 Delivery O2 Flow Rate FiO2 11/09/19 08:10 114 145/64 11/09/19 08:00 99.1 20 93 Nasal Cannula 8.0 11/09/19 04:00 50 I&O- Last 24 Hours up to 6 AM 11/09/19 06:00 Intake Total 2760 ml Output Total 1400 ml Balance 1360 ml Laboratory Data 24H LABS Laboratory Tests 2 11/08/19 12:26: Bedside Glucose (Misc Panel) 174H 11/08/19 16:33: Bedside Glucose (Misc Panel) 269H 11/08/19 20:18: Bedside Glucose (Misc Panel) 260H 11/09/19 07:32: Bedside Glucose (Misc Panel) 220H Microbiology Microbiology 11/08/19 Gram Stain - Final, Resulted 11/08/19 Sputum Culture, Resulted Pending 11/07/19 Respiratory Virus Panel (PCR) ([facility]) - Final, Complete 11/07/19 Blood Culture - Preliminary, Resulted No Growth after 48 hours. All Specime... CLARE LLOYD PA-C Nov 09, 2019 08:49
[2019-11-09] MEDS ORDERED: SERTRALINE HCL 50 MG TAB PO SCH (09:00)
[2019-11-09 09:23] LABS: BASO % 0.1 % (0.0-1.0); EOS % 0.1 % (0.0-3.0); HEMATOCRIT 28.5 % (42.0-52.0); HEMOGLOBIN 8.9 g/dl (13.5-17.5); LYMPH # 0.7 10^3/uL (1.5-5.0); LYMPH % 9.4 % (24.0-44.0); MEAN CORPUSCULAR HEMOGLOBIN 24.7 pg (27.0-33.0); MEAN CORPUSCULAR HGB CONC 31.2 g/dl (32.0-36.5); MEAN CORPUSCULAR VOLUME 79.2 fl (80.0-96.0); MONO # 0.7 10^3/uL (0.0-0.8); MONO % 10.5 % (0.0-5.0); NEUTROPHILS # 5.6 10^3/uL (1.5-8.5); NEUTROPHILS % 79.6 % (36.0-66.0); PLATELET COUNT, AUTOMATED 249 10^3/uL (150-450)
[2019-11-09 10:00] LABS: ALBUMIN 2.4 GM/DL (3.2-5.2); ALT/SGPT 193 U/L (12-78); BILIRUBIN,TOTAL 0.6 MG/DL (0.2-1.0); BLOOD UREA NITROGEN 13 MG/DL (7-18); CALCIUM LEVEL 8.4 MG/DL (8.8-10.2); CARBON DIOXIDE LEVEL 27 MEQ/L (21-32); CHLORIDE LEVEL 100 MEQ/L (98-107); CREATININE FOR GFR 1.16 MG/DL (0.70-1.30); GLOMERULAR FILTRATION RATE > 60.0 (>42); GLUCOSE, FASTING 212 MG/DL (70-100); POTASSIUM SERUM 3.3 MEQ/L (3.5-5.1); SODIUM LEVEL 135 MEQ/L (136-145)
[2019-11-09] MEDS ORDERED: POTASSIUM CHLORIDE 10 MEQ SR TABLET PO ONE (11:45)
[2019-11-09] MEDS: cefTRIAXone SOD 2 GM in D5W MINI-BAG PLUS 50 ML IV SCH (12:40)
[2019-11-09] MEDS: NORCO, ANEXSIA 5/325MG TABLET (HYDROcodone/ACETAMINOPHEN) PO PRN (17:38)
[2019-11-09] MEDS ORDERED: SLF 3 ML SYR IV PRN (18:00)
[2019-11-09] MEDS: MIRTAZAPINE 15 MG TAB PO SCH (20:39)
[2019-11-09] MEDS: IBUPROFEN 600 MG TAB PO PRN (20:40)
[2019-11-09] MEDS: LEVEMIR (INSULIN DETEMIR) 1 UNITS/0.01ML SC SCH (20:41)
[2019-11-09] MEDS ORDERED: MORPHINE 2 MG/ML 1ML VIAL (J2270) IV ONE (21:15)
[2019-11-09] MEDS ORDERED: NITROGLYCERIN 0.4 MG SUBL TABLET SL PRN (21:15)
[2019-11-09] MEDS ORDERED: CLOPIDOGREL 75 MG TAB PO STA (21:18)
[2019-11-09] MEDS ORDERED: HEPARIN DRIP 25,000 UNITS in IV 1 EA IV SCH (21:19)
[2019-11-09] MEDS ORDERED: HEPARIN SOD (PORCINE) 5000 UNITS/ML VIAL (J1644 PER 1000UNITS) IV ONE (21:30)
[2019-11-09 21:55] LABS: CK-MB VALUE MASS < 1.0 NG/ML (<3.6); CPK CREATINE PHOSPHOKINASE 110 U/L (39-308); MB/CK RELATIVE INDEX 0.91 (< OR =4)
[2019-11-09] MEDS ORDERED: SLF 3 ML SYR IV SCH (22:00)
--- NOTE | 2019-11-09 22:14 | DS.PDOC ---
Discharge Summary General Date of Admission Nov 07, 2019 at 01:15 Date of Discharge 11/09/2019 Discharge Summary PROCEDURES PERFORMED DURING STAY: None. ADMITTING DIAGNOSES: 1. Left sided community-acquired pneumonia 3. COPD secondary to tobacco abuse 4. 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 Chronic oxygen-dependent respiratory failure 6. Microcytic anemia 7. Chronic coronary artery disease. 8. Type 2 diabetes 9. Chronic HTN 10. CKD 3 11. PVD w chronic lower extremity edema DISCHARGE DIAGNOSES: 1. NSTEMI 2. Acute Coronary Syndrome COMPLICATIONS/CHIEF COMPLAINT: Pneumonia. HISTORY OF PRESENT ILLNESS: MARGI OF SERVICE: 2:35 AM CHIEF COMPLAINT: Fever HISTORY OF PRESENT ILLNESS: This is a 74-year-old male who came to the hospital at the prodding of his and daughter because she had a fever as high as 102 at home associated with a cough productive of white sputum and poor appetite. He has renal cell cancer with metastases to the lungs and has been feeling chronically short of breath for 3 months. Today his shortness of breath is not worse compared to his baseline. He denies having a runny nose, sore throat, or chest pain today. He last had chemotherapy on Wednesday. He has has some dental caries and plans to see his dentist soon. He was admitted for management of left-sided community- acquired pneumonia. HOSPITAL COURSE: He was admitted to the hospital and treated with IV Rocephin and azithromycin for community-acquired pneumonia. His respiratory status remained the same, alternating between a ventilatory mask with an FiO2 between 35% to 50% and high flow nasal cannula. His saturations remained between 88-92%. Antibiotics were started on 11/07/2019, currently he is on day #3 of antibiotic therapy. He did express some suicidal ideation due to increase of home stress. He lives with his , stepdaughter, and 3 autistic children, one of whom has very significant behavioral disorders. His wants to move back to [place], but all other family is here. He has been considering suicide because of his home stress and the pain that he has been in. He used to be an avid duyen, however he gave all of his guns away because he didn't feel that they should be in the home anymore. He did tell the provider that he saw on his second hospi talization, that he was seriously considering suicide but denied having a plan. Psychiatry was consulted, he was placed on mirtazapine and Zoloft. Patient subsequently reported to nursing staff of the problem is not when he is in the hospital, that he currently has no suicidal ideation, and that is only a problem when he goes home. At approximately 8:49 PM on 09/08/2020, the patient developed substernal chest pain which was nonradiating and throbbing in nature. When queried, he said that his chest pain was exactly the same as when he had his heart attack in 2013. He did develop diaphoresis. Home medications included atorvastatin and aspirin 324 mg which patient had received that morning. He also did receive metoprolol about an hour and a half prior to the development of his chest pain. He was given Plavix 150 mg, nitroglycerin 0.4 mg, and IV morphine. He had been receiving heparin for DVT prophylaxis, and was started on a heparin drip. Transfer to [facility] was initiated, with Dr. Kelly as the accepting physician. Dr. Kim from [facility] was notified about the patient's subsequent transfer to [facility]. DISCHARGE MEDICATIONS: Please see below. ALLERGIES: Please see below. PHYSICAL EXAMINATION ON DISCHARGE: VITAL SIGNS: Please see below. GENERAL: Elderly gentleman who is sitting up in the bed. Anxious and in mild distress, clutching his hand to his chest. HEENT: Mildly unkempt. Mucous membranes moist. Normocephalic, atraumatic. Slightly diaphoretic. Heart: Tachycardic but regular. No murmurs, gallops, or rubs appreciated. LUNGS: Tachypneic with bibasilar crackles. Able to converse in full sentences, periodically interrupted by dry cough EXTREMITIES: Bilateral 1+ pitting edema NEURO: Cranial nerves II-XII are grossly intact. PSYCH: Alert and oriented to person place and time. Able to understand and follow all commands LABORATORY DATA: Please see below. IMAGING: Imaging: Chest x-ray from 11/07/2019 showed an Wtfzyl-f-Dibf with the tip in the SV C/right atrium. Evidence of prior sternotomy and CABG. Bile basilar opacities, left greater than right, consistent with pneumonia and effusion. Large opacity in the right upper lobe. No pneumothorax. Chest CT without contrast done 11/07/2019 showed total opacification of the right upper lobe. Focal consolidation/early developing, consolidation in the right infrahilar region measuring 5.3 x 4.8 cm. Right long pleural based nodules less prominent than prior exam. Trace right-sided pleural effusion. Interval development of left lower lobe and lingular consolidation as well as left perihilar consolidation in addition to a 2.7 x 2.1 cm focal opacity in the left upper lobe. Dilated pulmonary trunk at 4.1 cm. PROGNOSIS: Stable for transfer, but overall guarded due to his multiple co- morbidities ACTIVITY: As tolerated. DIET: As tolerated DISCHARGE PLAN: Transfer to [facility], accepting physician is Dr. Kelly. DISPOSITION: Stable for transfer DISCHARGE INSTRUCTIONS: 1. Transfer to [facility] for advanced cardiac services. ITEMS TO FOLLOWUP ON ON OUTPATIENT: 1. Transfer to [facility] for advanced cardiac services. DISCHARGE CONDITION: Stable for transfer, prognosis guarded due to his multiple comorbidities. TIME SPENT ON DISCHARGE: Greater than 30 minutes. Vital Signs/I&Os Vital Signs Date Time Temp Pulse Resp B/P (MAP) Pulse Ox O2 Delivery O2 Flow Rate FiO2 11/09/19 21:26 36 Venturi Mask 2.0 50 11/09/19 21:23 132/82 11/09/19 20:39 120 11/09/19 19:00 98.7 90 I&O- Last 24 Hours up to 6 AM 11/09/19 06:00 Intake Total 2760 ml Output Total 1400 ml Balance 1360 ml Laboratory Data Labs 24H Laboratory Tests 2 11/09/19 07:32: Bedside Glucose (Misc Panel) 220H 11/09/19 09:08: Immature Granulocyte % (Auto) 0.3, Neutrophils (%) (Auto) 79.6H, Lymphocytes (%) (Auto) 9.4L, Monocytes (%) (Auto) 10.5H, Eosinophils (%) (Auto) 0.1, Basophils (%) (Auto) 0.1, Neutrophils # (Auto) 5.6, Lymphocytes # (Auto) 0.7L, Monocytes # (Auto) 0.7, Eosinophils # (Auto) 0.0, Basophils # (Auto) 0.0, Nucleated Red Blood Cells % (auto) 0.0, Anion Gap 8, Glomerular Filtration Rate > 60.0, Calcium Level 8.4L, Total Bilirubin 0.6, Aspartate Amino Transf (AST/SGOT) 245H, Alanine Aminotransferase (ALT/SGPT) 193H, Alkaline Phosphatase 155H, Total Protein 7.0, Albumin 2.4L, Albumin/Globulin Ratio 0.52L 11/09/19 11:25: Bedside Glucose (Misc Panel) 181H 11/09/19 16:40: Bedside Glucose (Misc Panel) 232H 11/09/19 20:19: Bedside Glucose (Misc Panel) 374H 11/09/19 21:06: Total Creatine Kinase 110, Creatine Kinase MB < 1.0, Creatine Kinase MB Relative Index 0.91, Troponin I 0.30H CBC/BMP Laboratory Tests 11/09/19 09:08 FSBS Laboratory Tests Test 11/09/19 07:32 11/09/19 11:25 11/09/19 16:40 11/09/19 20:19 Range/Units Bedside Glucose (Misc Panel) 220 181 232 374 83-110 MG/DL Microbiology Microbiology 11/08/19 Gram Stain - Final, Resulted 11/08/19 Sputum Culture, Resulted Pending 11/07/19 Respiratory Virus Panel (PCR) ([facility]) - Final, Complete 11/07/19 Blood Culture - Preliminary, Resulted No Growth after 48 hours. All Specime... Discharge Medications Scheduled Amlodipine Besylate (Amlodipine Besylate) 10 Mg Tab, 10 MG PO DAILY, (Reported) Amoxicillin (Amoxicillin) 500 Mg Capsule, 500 MG PO Q12H, (Reported) Aspirin (Aspirin EC) 325 Mg Tabec, 325 MG PO DAILY, (Reported) Atorvastatin Calcium (Atorvastatin Calcium) 40 Mg Tab, 40 MG PO DAILY, (Reported) Hydralazine HCl (Hydralazine HCl) 10 Mg Tab, 10 MG PO TID, (Reported) Insulin Degludec (Tresiba Flextouch U-200) 200 Unit/1 Ml Insuln.pen, 80 UNIT SC QHS, (Reported) Insulin Lispro (Humalog Kwikpen U-100) 100 Unit/1 Ml Insuln.pen, 1 DOSE SC AC, (Reported) PER SLIDING SCALE Metoprolol Tartrate (Metoprolol Tartrate) 50 Mg Tab, 50 MG PO DAILY, (Reported) Metoprolol Tartrate (Metoprolol Tartrate) 50 Mg Tablet, 25 MG PO QHS, (Reported) Sumatriptan Succinate (Sumatriptan Succinate) 6 Mg/0.5 Ml Cartridge, 6 MG SC ONCE for migraine headache inject 6 mg subcutaneously once for headache; may repeat dose once 4 hours later Umeclidinium [place] (Incruse Ellipta) 62.5 Mcg Blst.w.dev, 1 PUFF INH DAILY, (Reported) Scheduled PRN Hydrocodone/Acetaminophen ([place] 5-325 Tablet) 1 Each Tablet, 1 TAB PO Q6H PRN for PAIN, (Reported) Ibuprofen (Ibuprofen) 600 Mg Tablet, 600 MG PO TID PRN for PAIN, (Reported) Trazodone HCl (Trazodone HCl) 50 Mg Tablet, 50 MG PO QHS PRN for SLEEP, (Reported) Allergies Coded Allergies: No Known Allergies (Unverified , 11/06/19) GME ATTESTATION GME ATTESTATION My faculty preceptor for this patient encounter was physically present during the encounter and was fully available. All aspects of the patient interview, examination, medical decision making process, and medical care plan development were reviewed and approved by the faculty preceptor. The faculty preceptor is aware and concurs with the plan as stated in the body of this note and will attest to such by his/her cosignature. CLAUDIO HILARIO D.O. Nov 09, 2019 22:14
--- NOTE | 2019-11-10 05:45 | ECGEPIP ---
[facility] Test Date: 2019-11-09 Pat Name: DEIDRA REHMAN Department: Room: E9235-05 Gender: Male Director Digital Catalogue: ABILIO : 1945 Requested By: CLAUDIO HILARIO D.O. Order Number: [id number] Reading MD: Shona Rockwell Measurements Intervals [place] Rate: 124 P: 25 MT: 162 QRS: 60 QRSD: 90 T: 171 QT: 268 QTc: 386 Interpretive Statements SINUS TACHYCARDIA WITH OCCASIONAL VENTRICULAR PREMATURE COMPLEXES SEPTAL MYOCARDIAL INFARCTION, OF INDETERMINATE AGE DIFFUSE ST T ABN WITH ST DEPRESSION POSSSIBLE ISCHEMIA NO PRIOR Electronically Signed on 11-10-2019 5:45:32 EST by Shona Rockwell
[2019-11-14 00:06] LABS: BODY FLUID CULTURE Not indicated. (.); LEGIONELLA ANTIGEN URINE Negative (Negative); ORGANISM ID Not indicated. (.); SPECIMEN SOURCE Urine (.); URINE STREP PNEUMONIAE ANTIGEN Negative (Negative)
== END 2019-11-09 22:50 | disposition short-term general hospital (02) | DRG 193 ==
LOC: M ED 23:42 → M ED INP 11-07 01:15 → ENRESERV 11-07 03:30 → M ICU 11-07 05:45 → M PCU 11-08 22:43
PROVIDERS: ADMIT Internal Medicine; ATTEND Internal Medicine
DX: J18.9 Pneumonia, unspecified organism (principal); J96.21 Acute and chronic respiratory failure with hypoxia; I21.4 Non-ST elevation (NSTEMI) myocardial infarction; C78.00 Secondary malignant neoplasm of unspecified lung; C64.9 Malignant neoplasm of unspecified kidney, except renal pelvis; R45.851 Suicidal ideations; J44.9 Chronic obstructive pulmonary disease, unspecified; E11.51 Type 2 diabetes mellitus with diabetic peripheral angiopathy without gangrene; I25.2 Old myocardial infarction; I12.9 Hypertensive chronic kidney disease with stage 1 through stage 4 chronic kidney disease, or unspecified chronic kidney disease; E11.22 Type 2 diabetes mellitus with diabetic chronic kidney disease; N18.3 Chronic kidney disease, stage 3 (moderate); R26.81 Unsteadiness on feet; I25.10 Atherosclerotic heart disease of native coronary artery without angina pectoris; Z95.5 Presence of coronary angioplasty implant and graft; Z99.81 Dependence on supplemental oxygen; Z87.891 Personal history of nicotine dependence; D50.9 Iron deficiency anemia, unspecified; Z79.82 Long term (current) use of aspirin; Z79.4 Long term (current) use of insulin; Z79.899 Other long term (current) drug therapy